=== PATIENT | female | born 1955 | race Caucasian/White ===

== ENCOUNTER 2021-01-30 14:56 | Emergency (ER) | payer MEDICARE, BC ==
--- NOTE | 2021-01-30 16:36 | ERPHSYRPT ---
- History of Present Illness Time Seen by Provider: 01/30/21 15:10 Source: patient Exam Limitations: no limitations Patient Subjective Stated Complaint: PT states "I have MS and I got the second covid shot on january 04 and ever since then I have had these odd symptoms. I have had buring near my perineaum and my coordination has been off. I called and spoke with my neurologist in [place] [facility] and they initially thought it was an MS flair due to the coviid shot but the symptoms have been getting worse and I called and spoke with a triage nurse today and he got all nervous that I might be having a stroke." Triage Nursing Assessment: PT presented alert and oriented X3, skin pwd. Pt ambulates with a cane and unsteady gait. PT able to speak in clear full sentencs pt in no apparent respiratory distress. Physician History: Patient is a 65-year-old female presents to our ED as referral from her primary care doctor for evaluation of "stroke". Patient states that she has been having difficulty walking for the past 3 days. However patient states that Dilaudid pump. She is also on Lyrica and Valium. Patient's Lyrica was recently increased on 23 January by her pain specialist. Patient does state that her neurologist felt that she had a MS flareup on 19 January due to Covid vaccination. Patient was then given 3 days of steroid infusion for the suspected flareup. Patient has no other complaints. No chest pain or shortness of breath no nausea vomiting or diaphoresis. No focal or lateralizing symptoms. Patient does states that she feels off and her balance is not normal. Patient voices no other complaints or concerns at this time. Timing/Duration: day(s) (3 days) Severity: moderate Modifying Factors: Improves With: nothing Associated Symptoms: No nausea, No vomiting, No diaphoresis, No chest pain, No fever, No headaches, No loss of appetite, No malaise, No syncope Allergies/Adverse Reactions: levofloxacin [From Levaquin] Allergy (Mild, Verified 01/20/21 13:02) tendonitis Penicillins Allergy (Unknown, Verified 01/20/21 12:59) Rash chromium Allergy (Verified 01/20/21 12:59) Rash formaldehyde Allergy (Verified 01/20/21 12:59) Rash epinephrine Adverse Reaction (Unknown, Verified 01/20/21 12:59) pt states it increases her heart rate and makes her feel stoned morphine Adverse Reaction (Unknown, Verified 01/20/21 12:59) hallucnations NSAIDS (Non-Steroidal Anti-Inflamma Adverse Reaction (Unknown, Verified 01/20/21 12:59) stomach ulcers nalbuphine HCl [From Nubain] Adverse Reaction (Verified 01/20/21 12:59) hallucunations steroids Adverse Reaction (Unknown, Uncoded 01/20/21 12:59) pt states they makes her flush feel hot and increases her blood pressure Home Medications: Baclofen 10 mg [Lioresal 10 mg] 2 tab PO TID 04/08/12 [History] Cyclosporine [Restasis] 1 drops OP BID 04/08/12 [History] Estradiol 1 tab PO DAILY 04/08/12 [History] PANTOPRAZOLE 40 mg Tablet [Protonix 40MG Tablet] 40 mg PO DAILY 01/24/16 [History] Levothyroxine Sodium 50 Mcg [Synthroid 50 Mcg] 50 mcg PO DAILY 06/13/16 [History] Atorvastatin Calcium [Lipitor 20MG Tablet] 20 mg PO DAILY 01/20/21 [History] Cholestyramine Light 4 gm [QUESTRAN Light 4 GM Packet] 4 gm PO HS 01/20/21 [History] Diltiazem HCl 120 mg [Cardizem CD 120 MG] 120 mg PO DAILY 01/20/21 [History] Famotidine [Pepcid] 40 mg PO HS 01/20/21 [History] Hydromorphone HCl 30 mg/30 ml* [Dilaudid 1 mg/1Ml ELECTRICIAN REFINERY] 0.94032 mg IV UD 01/20/21 [History] Lidocaine/Transparent Dressing [Lidocaine 4% Kit] 1 each TP UD 01/20/21 [History] Promethazine HCl 25 mg [Phenergan 25 mg] 25 mg PO Q6H PRN PRN 01/20/21 [History] Rivaroxaban 10 mg Tablet [Xarelto 10 mg Tablet] 10 mg PO DAILY 01/20/21 [History] Diazepam 5 mg [Valium 5 MG] 5 mg PO DAILY 01/30/21 [History] Pregabalin [Lyrica 100Mg] 200 mg PO BID 01/30/21 [History] Hx Tetanus, Diphtheria Vaccination/Date Given: Yes Hx Influenza Vaccination/Date Given: Yes Hx Pneumococcal Vaccination/Date Given: No Immunizations Up to Date: Yes Travel Risk - International Travel Have you traveled outside of the country in past 3 weeks: No - Coronavirus Screening Are you exhibiting any of the following symptoms?: No Close contact with a COVID-19 positive Pt in past 14-21 Days: No - Vaccine Status Have you recieved a Covid-19 vaccination: Yes Manager Program Management: Moderna - Vaccination Dates Date of 2cond Vaccination (if applicable): 01/04/2021 - Review of Systems Constitutional: No Symptoms, No Fever, No Chills Eyes: No Symptoms Ears, Nose, & Throat: No Symptoms Respiratory: No Symptoms, No Cough, No Dyspnea Cardiac: No Symptoms, No Chest Pain, No Edema, No Syncope Abdominal/Gastrointestinal: No Symptoms, No Abdominal Pain, No Nausea, No Vomiting, No Diarrhea Genitourinary Symptoms: No Symptoms, No Dysuria Musculoskeletal: No Symptoms, No Back Pain, No Neck Pain Skin: No Symptoms, No Rash Neurological: No Symptoms, No Dizziness, No Focal Weakness, No Sensory Changes Psychological: No Symptoms Endocrine: No Symptoms Hematologic/Lymphatic: No Symptoms Immunological/Allergic: No Symptoms All Other Systems: Reviewed and Negative - Past Medical History Pertinent Past Medical History: Yes Neurological History: Migraines, Other ENT History: Other Cardiac History: Arrhythmia, High Cholesterol Respiratory History: No Pertinent History Endocrine Medical History: Hyperthyroidism, Hypothyroidism Musculoskeletal History: Degenerative Disk Disease GI Medical History: GERD, Gallbladder Disease History: Other Psycho-Social History: No Pertinent History Female Reproductive Disorders: Cervical Cancer Other Medical History: MULTIPLE SCLEROSIS (RELAPSING/REMITTING), CERVICAL CANCER, LYMPHONA (IN REMISSION),. 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 tinnitis - Past Surgical History Past Surgical History: Yes Neuro Surgical History: Other Cardiac: Cardiac Catheterization Respiratory: No Pertinent History Gastrointestinal: Appendectomy Genitourinary: Kidney Surgery Musculoskeletal: Orthopedic Surgery, Other Female Surgical History: Hysterectomy, Other Other Surgical History: odilia oopherectomy, t-11 and t12 laminectiomy, stents in kidney - Social History Smoking Status: Former smoker How long have you smoked: 5 years Exposure to second hand smoke: No Drug Use: none Patient Lives Alone: No - Female History Hx Now: No - Nursing Vital Signs Nursing Vital Signs: Initial Vital Signs Temperature 98.3 F 01/30/21 14:59 Pulse Rate 80 01/30/21 14:59 Respiratory Rate 20 01/30/21 14:59 Blood Pressure 153/74 01/30/21 14:59 O2 Sat by Pulse Oximetry 100 01/30/21 14:59 Pain Scale Pain Intensity 0 - Physical Exam General Appearance: no apparent distress, alert Eye Exam: PERRL/EOMI, eyes nml inspection Ears, Nose, Throat Exam: normal ENT inspection, TMs normal, pharynx normal, moist mucous membranes Neck Exam: normal inspection, non-tender, supple, full range of motion Respiratory Exam: normal breath sounds, lungs clear, No respiratory distress Cardiovascular Exam: regular rate/rhythm, normal heart sounds, normal peripheral pulses Gastrointestinal/Abdomen Exam: soft, normal bowel sounds, No tenderness, No mass Back Exam: normal inspection, normal range of motion, No CVA tenderness, No vertebral tenderness Extremity Exam: normal inspection, normal range of motion, pelvis stable Neurologic Exam: alert, oriented x 3, cooperative, normal mood/affect, nml cerebellar function, nml station & gait, sensation nml, No motor deficits Skin Exam: normal color, warm, dry, No rash Lymphatic Exam: No adenopathy SpO2 Interpretation: normal SpO2: 100 O2 Delivery: Room Air - Course Nursing assessment & vital signs reviewed: Yes EKG Interpreted by Me: RATE (86), Sinus Rhythm, NORMAL AXIS, NORMAL INTERVALS - CT Exams Head CT Interpretation: Tele-radiologist Report (Multiple bilateral periventricular hypodensities presumed known multiple sclerosis. Outside comparison studies recommended if available. If not MRI brain with contrast exam may yield further information.) Ordered Tests: Active Orders 24 hr Category Date Time Status Radio Communications Mechanician STAT Care 01/30/21 16:37 Active EKG-ER Only STAT Care 01/30/21 16:37 Active IV Insertion STAT Care 01/30/21 16:37 Active Pulse Oximetry (ED) STAT Care 01/30/21 16:37 Active HEAD WITHOUT CONTRAST [CT] Stat Exams 01/30/21 16:38 Taken CBC W DIFF Stat Lab 01/30/21 16:50 Completed CMP Stat Lab 01/30/21 16:50 Completed MAGNESIUM Stat Lab 01/30/21 16:50 Completed TROPONIN Q3H Lab 01/30/21 16:50 Completed TROPONIN Q3H Lab 01/30/21 19:30 Completed TROPONIN Q3H Lab 01/30/21 22:45 Ordered TROPONIN Q3H Lab 01/31/21 01:45 Ordered TROPONIN Q3H Lab 01/31/21 04:45 Ordered TSH, 3RD Generation Urgent Lab 01/30/21 16:50 Completed UA W/RFX UR CULTURE Stat Lab 01/30/21 17:17 Completed Medication Summary Generic Name Dose Route Start Last Admin Trade Name Freq PRN Reason Stop Dose Admin Sodium Chloride 1,000 mls @ 50 mls/hr 01/30/21 16:45 01/30/21 18:50 Sodium Chloride 0.9% 1000 Ml IV 03/01/21 16:44 50 mls/hr .Q20H KRISTIE Administration Lab/Rad Data: Laboratory Result Diagrams 01/30/21 16:50 01/30/21 16:50 Laboratory Results 01/30/21 01/30/21 01/30/21 Range/Units 19:30 17:17 16:50 WBC (4.0-10.5) K/mm3 RBC (4.1-5.4) M/mm3 Hgb (12.0-16.0) gm/dl Hct (35-47) % MCV (78-100) fl MCH (26-32) pg MCHC (32-36) g/dl RDW (11.5-14.0) % Plt Count (150-450) K/mm3 MPV (7.5-11.0) fl Gran % (36.0-66.0) % Eos # (Auto) (0-0.5) Absolute Lymphs (auto) (1.0-4.6) Absolute Monos (auto) (0.0-1.3) Lymphocytes % (24.0-44.0) % Monocytes % (0.0-12.0) % Eosinophils % (0.00-5.0) % Basophils % (0.0-0.4) % Absolute Granulocytes (1.4-6.9) Basophils # (0-0.4) Sodium (137-145) mmol/L Potassium (3.5-5.1) mmol/L Chloride (98-107) mmol/L Carbon Dioxide (22-30) mmol/L Anion Gap (5-15) MEQ/L BUN (7-17) mg/dL Creatinine (0.52-1.04) mg/dL Estimated GFR ML/MIN Glucose (74-106) mg/dL Calcium (8.4-10.2) mg/dL Magnesium (1.6-2.3) mg/dL Total Bilirubin (0.2-1.3) mg/dL AST (14-36) U/L ALT (0-35) U/L Alkaline Phosphatase (38-126) U/L Troponin I < 0.012 < 0.012 (0.000-0.034) ng/mL Serum Total Protein (6.3-8.2) g/dL Albumin (3.5-5.0) g/dL TSH 3rd Generation 0.687 (0.47-4.68) mIU/L Urine Color YELLOW (YELLOW) Urine Appearance SLIGHTLY CLOUDY (CLEAR) Urine pH 5.0 (5-6) Ur Specific [place] 1.019 (1.005-1.025) Urine Protein NEGATIVE (Negative) Urine Ketones NEGATIVE (NEGATIVE) Urine Blood NEGATIVE (0-5) [place]/ul Urine Nitrite NEGATIVE (NEGATIVE) Urine Bilirubin NEGATIVE (NEGATIVE) Urine Urobilinogen NEGATIVE (0-1) mg/dL Ur Leukocyte Esterase NEGATIVE (NEGATIVE) Urine WBC (Auto) NONE (0-5) /HPF Urine RBC (Auto) NONE (0-2) /HPF U Epithel Cells (Auto) NONE (FEW) /HPF Urine Bacteria (Auto) NONE (NEGATIVE) /HPF Urine Mucus (Auto) SLIGHT (NEGATIVE) /HPF Urine Culture Reflexed NO (NO) Urine Glucose NEGATIVE (NEGATIVE) mg/dL 01/30/21 01/30/21 Range/Units 16:50 16:50 WBC 5.6 (4.0-10.5) K/mm3 RBC 3.97 L (4.1-5.4) M/mm3 Hgb 12.6 (12.0-16.0) gm/dl Hct 39.2 (35-47) % MCV 98.7 (78-100) fl MCH 31.7 (26-32) pg MCHC 32.1 (32-36) g/dl RDW 13.3 (11.5-14.0) % Plt Count 215 (150-450) K/mm3 MPV 8.8 (7.5-11.0) fl Gran % 65.0 (36.0-66.0) % Eos # (Auto) 0.17 (0-0.5) Absolute Lymphs (auto) 1.32 (1.0-4.6) Absolute Monos (auto) 0.46 (0.0-1.3) Lymphocytes % 23.6 L (24.0-44.0) % Monocytes % 8.2 (0.0-12.0) % Eosinophils % 3.0 (0.00-5.0) % Basophils % 0.2 (0.0-0.4) % Absolute Granulocytes 3.63 (1.4-6.9) Basophils # 0.01 (0-0.4) Sodium 141 (137-145) mmol/L Potassium 3.9 (3.5-5.1) mmol/L Chloride 107 (98-107) mmol/L Carbon Dioxide 28 (22-30) mmol/L Anion Gap 9.8 (5-15) MEQ/L BUN 12 (7-17) mg/dL Creatinine 0.95 (0.52-1.04) mg/dL Estimated GFR > 60.0 ML/MIN Glucose 95 (74-106) mg/dL Calcium 9.3 (8.4-10.2) mg/dL Magnesium 2.6 H (1.6-2.3) mg/dL Total Bilirubin 0.30 (0.2-1.3) mg/dL AST 35 (14-36) U/L ALT 32 (0-35) U/L Alkaline Phosphatase 70 (38-126) U/L Troponin I (0.000-0.034) ng/mL Serum Total Protein 5.8 L (6.3-8.2) g/dL Albumin 3.5 (3.5-5.0) g/dL TSH 3rd Generation (0.47-4.68) mIU/L Urine Color (YELLOW) Urine Appearance (CLEAR) Urine pH (5-6) Ur Specific [place] (1.005-1.025) Urine Protein (Negative) Urine Ketones (NEGATIVE) Urine Blood (0-5) [place]/ul Urine Nitrite (NEGATIVE) Urine Bilirubin (NEGATIVE) Urine Urobilinogen (0-1) mg/dL Ur Leukocyte Esterase (NEGATIVE) Urine WBC (Auto) (0-5) /HPF Urine RBC (Auto) (0-2) /HPF U Epithel Cells (Auto) (FEW) /HPF Urine Bacteria (Auto) (NEGATIVE) /HPF Urine Mucus (Auto) (NEGATIVE) /HPF Urine Culture Reflexed (NO) Urine Glucose (NEGATIVE) mg/dL - Progress Progress: improved Progress Note: Patient reassessed. Neuro exam is at her baseline. Vitals within normal li mits. No focal or lateralizing symptoms. CT just consistent with a history of multiple sclerosis. Troponin negative. It appears that her symptomology is likely due to overmedication. Symptoms started right after initiating her Lyrica medication. Dr. Godfrey covering Dr. Ruff. We will hold the Lyrica. Patient will follow up with Dr. Godfrey this week. Dr. Samson will follow up with patient's neurologist Dr. Barton and patient's pain doctor Dr. Mark to coordinate her medication regimen. Patient requesting discharge. At this point there is no indication for admission. Will discharge home at this time. Patient agrees to follow-up with Dr. Maxwell within 48 hours for reev aluation. 01/30/21 20:30 Counseled pt/family regarding: lab results, diagnosis, rad results - Departure Departure Disposition: Home Clinical Impression: Overuse of medication Condition: Stable Critical Care Time: No Referrals: KATINA VILLAVICENCIO DO [Primary Care Provider] - YESENIA GODFREY MD [ACTIVE STAFF] - Additional Instructions: Please follow-up with Dr. Godfrey within [address]. Godfrey is covering for Dr. Ruff. You are to discontinue your Lyrica until advised otherwise by your primary care doctor/Dr. Ruff or Dr. Godfrey. Discharge/Care Plan KOURTNEY HU was seen on 01/30/21 in the Emergency Room. The patient was counseled regarding Diagnosis,Lab results, Imaging studies, need for follow up and when to return to the Emergency Room. Prescriptions given: Discharge Note I have spoken with the patient and/or caregivers. I have explained the patient's condition, diagnosis and treatment plan based on the information available to me at this time. I have answered the patient's and/or caregiver's questions and addressed any concerns. The patient and/or caregivers have as good understanding of the patient's diagnosis, condition and treatment plan as can be expected at this point. The vital signs have been stable. The patient's condition is stable and appropriate for discharge from the emergency department. The patient will pursue further outpatient evaluation with the primary care physician or other designated or consulting physician as outlined in the discharge instructions. The patient and/or caregivers are agreeable to this plan of care and follow-up instructions have been explained in detail. The patient and/or caregivers have received these instruction. The patient/and or caregivers are aware that any significant change in condition or worsening of symptoms should prompt an immediate return to this or the closest emergency department or call 911.
[2021-01-30] MEDS ORDERED: Sodium Chloride 0.9% 1000 ML 1,000 ML IV SCH (16:45)
[2021-01-30 16:55] LABS: Absolute Neutrophil Ct (ANC) 3.63 (1.4-6.9); BASOPHIL % 0.2 % (0.0-0.4); Basophil (Absolute #) 0.01 (0-0.4); Eosinophil (Absolute #) 0.17 (0-0.5); Hematocrit 39.2 % (35-47); Hemoglobin 12.6 gm/dl (12.0-16.0); Lymphocyte (Absolute #) 1.32 (1.0-4.6); Lymphocytes % 23.6 % (24.0-44.0); Mean Cell Volume 98.7 fl (78-100); Mean Corpuscular Hemoglobin 31.7 pg (26-32); Mean Corpuscular Hgb Concent. 32.1 g/dl (32-36); Mean Platelet Volume 8.8 fl (7.5-11.0); Monocyte (Absolute #) 0.46 (0.0-1.3); Monocytes % 8.2 % (0.0-12.0); Platelet Count 215 K/mm3 (150-450); Red Blood Count 3.97 M/mm3 (4.1-5.4); Red Cell Distribution Width 13.3 % (11.5-14.0); White Blood Count 5.6 K/mm3 (4.0-10.5)
[2021-01-30 17:25] LABS: ALBUMIN 3.5 g/dL (3.5-5.0); ALKALINE PHOSPHATASE 70 U/L (38-126); ANION GAP 9.8 MEQ/L (5-15); BLOOD UREA NITROGEN 12 mg/dL (7-17); CHLORIDE 107 mmol/L (98-107); Calcium 9.3 mg/dL (8.4-10.2); Carbon Dioxide 28 mmol/L (22-30); Creatinine 1 0.95 mg/dL (0.52-1.04); EST GLOMERULAR FILTRATION RATE > 60.0 ML/MIN; Glucose 95 mg/dL (74-106); MAGNESIUM 2.6 mg/dL (1.6-2.3); Potassium 3.9 mmol/L (3.5-5.1); SGOT/AST 35 U/L (14-36); SGPT/ALT 32 U/L (0-35); SODIUM 141 mmol/L (137-145); Total Protein 5.8 g/dL (6.3-8.2)
[2021-01-30 17:56] LABS: TROPONIN < 0.012 ng/mL (0.000-0.034); TSH, 3RD Generation 0.687 mIU/L (0.47-4.68)
[2021-01-30 18:20] LABS: Appearance SLIGHTLY CLOUDY (CLEAR); Bilirubin NEGATIVE (NEGATIVE); Blood NEGATIVE Ery/ul (0-5); Glucose NEGATIVE (NEGATIVE); Ketones NEGATIVE (NEGATIVE); Leukocyte Esterase NEGATIVE (NEGATIVE); Mucus SLIGHT /HPF (NEGATIVE); Nitrite NEGATIVE (NEGATIVE); Protein,Urine Dip NEGATIVE (Negative); Specific Gravity 1.019 (1.005-1.025); Urobilinogen NEGATIVE mg/dL (0-1)
[2021-01-30] MEDS ORDERED: Sodium Chloride 0.9% 1000 ML 1,000 ML ONE (18:49)
[2021-01-30 21:05] VITALS: BP 134/60; PULSE 71; O2SAT 97
--- NOTE | 2021-01-31 08:08 | XRAY ---
Indication: Altered mental status. Loss of balance. History multiple sclerosis. Multiple contiguous axial images obtained through the head without contrast. Comparison: None Ventriculosulcal pattern appears symmetric. There are multiple small ill-defined hypodensities in the periventricular white matter presumed known multiple sclerosis. No acute intracranial hemorrhage, abnormal extra-axial fluid collection, or mass effect. Fourth ventricle is midline without hydrocephalus. Bony calvarium intact. Visualized paranasal sinuses and mastoid air cells are clear. Impression: Multiple bilateral periventricular hypodensities presumed known multiple sclerosis. Outside comparison studies recommended if available. If not, MRI brain with contrast exam may yield further information.
== END 2021-01-30 21:05 | disposition home or self-care (01) ==
LOC: ED 14:56
DX: T50.901A Poisoning by unspecified drugs, medicaments and biological substances, accidental (unintentional), initial encounter (principal); Z79.899 Other long term (current) drug therapy; E03.9 Hypothyroidism, unspecified; E05.90 Thyrotoxicosis, unspecified without thyrotoxic crisis or storm
CPT/HCPCS: 36000; 36415; 70450; 80053; 81001; 83735; 84443; 84484; 85025; 93005; 93041; 94760; 99284

== ENCOUNTER 2021-05-17 15:29 | Day surgery (SDC) | payer MEDICARE, OTHER ==
[2013-06-22 13:06] VITALS: BP 119/52
[2021-05-17] MEDS ORDERED: Xylocaine 1% Vial 30 ML PF IJ ONE (15:30)
[2021-05-17] MEDS ORDERED: Sodium Chloride 0.9(Preservative Free) 10 ML IJ ONE (15:30)
[2021-05-17] MEDS ORDERED: Depo-Medrol 40 MG/ML IM ONE (15:30)
[2021-05-17] MEDS ORDERED: Lactated Ringers 1,000 ML IV ONE (16:39)
[2021-05-17] MEDS ORDERED: DIPRIVAN 200 MG/20 ML IV ONE (17:00)
--- NOTE | 2021-05-18 09:13 | XRAY ---
Indication: Caudal MELLISA. Intraoperative fluoroscopy provided for 19 seconds. 2 digital spot image submitted for interpretation demonstrates midline posterior caudal needle tip projecting mid sacrum. Small amount of contrast injected for needle tip placement. Correlate with intraoperative findings/report.
--- NOTE | 2021-05-18 15:50 | XRAY ---
19 seconds of fluoroscopy was used in surgery for a caudal MELLISA.
== END 2021-05-17 17:30 | disposition home or self-care (01) ==
LOC: SDC-PAIN 15:29
PROVIDERS: ATTEND Psychiatry & Neurology Pain Medicine
DX: M54.16 Radiculopathy, lumbar region (principal); Z79.899 Other long term (current) drug therapy
CPT/HCPCS: 62323; 72100; 77003; J1030; J2001; J2704; Q9966

== ENCOUNTER 2021-06-14 14:50 | Day surgery (SDC) | payer MEDICARE, OTHER ==
[2013-06-22 13:06] VITALS: BP 119/52
[2021-06-14] MEDS ORDERED: Depo-Medrol 40 MG/ML IM ONE (14:51)
[2021-06-14] MEDS ORDERED: Xylocaine 1% Vial 30 ML PF IJ ONE (14:51)
[2021-06-14] MEDS ORDERED: Sodium Chloride 0.9(Preservative Free) 10 ML IJ ONE (14:51)
[2021-06-14] MEDS ORDERED: Lactated Ringers 1,000 ML IV ONE (15:49)
[2021-06-14] MEDS ORDERED: DIPRIVAN 200 MG/20 ML IV ONE (16:05)
--- NOTE | 2021-06-14 16:51 | XRAY ---
Indication: Caudal MELLISA. Intraoperative fluoroscopy provided for 14 seconds. 2 digital spot images submitted for interpretation demonstrates posterior caudal needle tip projecting mid-sacrum. Small amount of contrast injected for needle tip placement. Correlate with intraoperative findings/report.
--- NOTE | 2021-06-14 16:53 | XRAY ---
14 seconds fluoroscopy time in surgery for caudal MELLISA.
== END 2021-06-14 16:30 | disposition home or self-care (01) ==
LOC: SDC-PAIN 14:50
PROVIDERS: ATTEND Psychiatry & Neurology Pain Medicine
DX: M54.16 Radiculopathy, lumbar region (principal); Z79.899 Other long term (current) drug therapy
CPT/HCPCS: 62323; 72020; 77003; J1030; J2001; J2704; Q9966

== ENCOUNTER 2021-10-03 15:05 | Emergency (ER) | payer MEDICARE, BC ==
[2021-10-03] MEDS ORDERED: LOPRESSOR 5 MG/5 ML INJECTION IV ONE ×4 (15:32→16:22)
[2021-10-03 15:57] VITALS: O2SAT 97
[2021-10-03 16:09] LABS: Absolute Neutrophil Ct (ANC) 3.52 (1.4-6.9); Basophil (Absolute #) 0.01 (0-0.4); Eosinophil % 0.9 % (0.00-5.0); Eosinophil (Absolute #) 0.05 (0-0.5); Hematocrit 42.5 % (35-47); Hemoglobin 13.8 gm/dl (12.0-16.0); Lymphocyte (Absolute #) 1.42 (1.0-4.6); Lymphocytes % 26.1 % (24.0-44.0); Mean Cell Volume 97.5 fl (78-100); Mean Corpuscular Hemoglobin 31.7 pg (26-32); Mean Corpuscular Hgb Concent. 32.5 g/dl (32-36); Mean Platelet Volume 8.6 fl (7.5-11.0); Monocyte (Absolute #) 0.45 (0.0-1.3); Monocytes % 8.3 % (0.0-12.0); Neutrophil % 64.5 % (36.0-66.0); Platelet Count 234 K/mm3 (150-450); Red Blood Count 4.36 M/mm3 (4.1-5.4); Red Cell Distribution Width 12.2 % (11.5-14.0); White Blood Count 5.5 K/mm3 (4.0-10.5)
[2021-10-03 16:27] LABS: ALBUMIN 4.4 g/dL (3.5-5.0); ALKALINE PHOSPHATASE 70 U/L (38-126); ANION GAP 9.6 MEQ/L (5-15); BLOOD UREA NITROGEN 13 mg/dL (7-17); CHLORIDE 104 mmol/L (98-107); CK-Creatinine Phosphokinase 34 U/L (30-135); Calcium 9.4 mg/dL (8.4-10.2); Carbon Dioxide 29 mmol/L (22-30); Creatinine 1 0.83 mg/dL (0.52-1.04); EST GLOMERULAR FILTRATION RATE > 60.0 ML/MIN; Glucose 106 mg/dL (74-106); Potassium 3.9 mmol/L (3.5-5.1); SGOT/AST 27 U/L (14-36); SGPT/ALT 16 U/L (0-35); SODIUM 139 mmol/L (137-145); Total Protein 6.8 g/dL (6.3-8.2)
--- NOTE | 2021-10-03 16:32 | XRAY ---
Indication: Dyspnea. Comparison: None Portable chest demonstrates normal heart, lungs, and bony thorax with incidental left hilar calcified nodes.
[2021-10-03 16:55] VITALS: BP 178/79; PULSE 84
[2021-10-03] MEDS ORDERED: Lopressor 50 MG PO ONE (17:02)
[2021-10-03] MEDS ORDERED: Lopressor 50 MG ONE (17:04)
--- NOTE | 2021-10-03 17:10 | ERPHSYRPT ---
- History of Present Illness Time Seen by Provider: 10/03/21 15:15 Source: patient Exam Limitations: no limitations Patient Subjective Stated Complaint: tachycardia with pauses causing her to feel lightheaded Triage Nursing Assessment: Pt was brought to the ER by her , hypertensive, tachycardia, denies pain, pulses normal, denies N&V, denies chest pain, denies diaphoresis, feels the palpatations in her neck Timing/Duration: today Activities at Onset: none Quality: other (feels palpitations) Location: other (no pain) Severity of Pain-Max: none Severity of Pain-Current: none Modifying Factors: Improves With: nothing Nitro Today/Relief: no nitro taken today Aspirin Treatment Today: no aspirin today Associated Symptoms: denies symptoms Prior Chest Pain/Cardiac Workup: no prior chest pain, echocardiography (hx PAF and takes diltiazem and eliquis, heart rate up today, but sinus tach with PVC's) Allergies/Adverse Reactions: levofloxacin [From Levaquin] Allergy (Mild, Verified 10/03/21 15:20) tendonitis Penicillins Allergy (Unknown, Verified 10/03/21 15:20) Rash chromium Allergy (Verified 10/03/21 15:20) Rash formaldehyde Allergy (Verified 10/03/21 15:20) Rash epinephrine Adverse Reaction (Unknown, Verified 10/03/21 15:20) pt states it increases her heart rate and makes her feel stoned morphine Adverse Reaction (Unknown, Verified 10/03/21 15:20) hallucnations NSAIDS (Non-Steroidal Anti-Inflamma Adverse Reaction (Unknown, Verified 10/03/21 15:20) stomach ulcers nalbuphine HCl [From Nubain] Adverse Reaction (Verified 10/03/21 15:20) hallucunations steroids Adverse Reaction (Unknown, Uncoded 10/03/21 15:20) pt states they makes her flush feel hot and increases her blood pressure Home Medications: Baclofen 10 mg [Lioresal 10 mg] 2 tab PO QID 04/08/12 [History] estradioL [Estradiol] 1 tab PO DAILY 04/08/12 [History] PANTOPRAZOLE 40 mg Tablet [Protonix 40MG Tablet] 40 mg PO DAILY 01/24/16 [History] Levothyroxine Sodium 50 Mcg [Synthroid 50 Mcg] 50 mcg PO DAILY 06/13/16 [History] Atorvastatin Calcium [Lipitor 20MG Tablet] 20 mg PO DAILY 01/20/21 [History] Diltiazem HCl 120 mg [Cardizem CD 120 MG] 120 mg PO DAILY 01/20/21 [History] Famotidine [Pepcid] 40 mg PO HS 01/20/21 [History] Promethazine HCl 25 mg [Phenergan 25 mg] 25 mg PO Q6H PRN PRN 01/20/21 [History] Rivaroxaban 10 mg Tablet [Xarelto 10 mg Tablet] 10 mg PO DAILY 01/20/21 [History] Diazepam 5 mg [Valium 5 MG] 2.5 mg PO DAILY PRN 01/30/21 [History] Colestipol HCl [Colestid] 1 gm PO DAILY 10/03/21 [History] Hx Tetanus, Diphtheria Vaccination/Date Given: Yes Hx Influenza Vaccination/Date Given: Yes Hx Pneumococcal Vaccination/Date Given: No Travel Risk - International Travel Have you traveled outside of the country in past 3 weeks: No - Coronavirus Screening Are you exhibiting any of the following symptoms?: No Close contact with a COVID-19 positive Pt in past 14-21 Days: No - Vaccine Status Have you recieved a Covid-19 vaccination: Yes 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 - Vaccination Dates Date of 2cond Vaccination (if applicable): 01/04/2021 - Review of Systems Constitutional: No Symptoms Eyes: No Symptoms Ears, Nose, & Throat: No Symptoms Respiratory: No Symptoms Cardiac: No Symptoms Abdominal/Gastrointestinal: No Symptoms Genitourinary Symptoms: No Symptoms Musculoskeletal: No Symptoms Skin: No Symptoms Neurological: No Symptoms Psychological: No Symptoms Endocrine: No Symptoms Hematologic/Lymphatic: No Symptoms Immunological/Allergic: No Symptoms All Other Systems: Reviewed and Negative - Past Medical History Pertinent Past Medical History: Yes Neurological History: Migraines, Other ENT History: Other Cardiac History: Hypertension Respiratory History: Asthma Endocrine Medical History: Hypothyroidism Musculoskeletal History: Osteoarthritis GI Medical History: GERD, Gallbladder Disease History: Other Psycho-Social History: No Pertinent History Female Reproductive Disorders: Cervical Cancer Other Medical History: INTERNAL PAIN PUMP, LYMPHOMA IN REMISSION, ATRIAL FIB, ARNOLD CHIARI MALFORMATION, MS - Past Surgical History Past Surgical History: Yes Neuro Surgical History: Other Cardiac: Cardiac Catheterization Respiratory: No Pertinent History Gastrointestinal: Appendectomy Genitourinary: Kidney Surgery Musculoskeletal: Orthopedic Surgery, Other Female Surgical History: Hysterectomy, Other Other Surgical History: odilia oopherectomy, t-11 and t12 laminectiomy, stents in kidney - Social History Smoking Status: Former smoker How long have you smoked: 5 years Exposure to second hand smoke: No Drug Use: none Patient Lives Alone: No - Female History Hx Now: No - Nursing Vital Signs Nursing Vital Signs: Initial Vital Signs Temperature 98.6 F 10/03/21 15:10 Pulse Rate 105 H 10/03/21 15:10 Blood Pressure 199/83 10/03/21 15:10 O2 Sat by Pulse Oximetry 98 10/03/21 15:10 Pain Scale Pain Intensity 0 - Physical Exam General Appearance: no apparent distress, alert, anxiety Eye Exam: PERRL/EOMI Ears, Nose, Throat Exam: normal ENT inspection Neck Exam: normal inspection Respiratory Exam: normal breath sounds, chest tenderness Cardiovascular Exam: regular rate/rhythm, normal heart sounds, tachycardia Gastrointestinal/Abdomen Exam: soft Pelvic Exam: not done Rectal Exam: not done Back Exam: normal inspection Extremity Exam: normal inspection Neurologic Exam: alert, oriented x 3, cooperative Skin Exam: normal color SpO2 Interpretation: normal SpO2: 97 O2 Delivery: Room Air - Course Nursing assessment & vital signs reviewed: Yes EKG Interpreted by Me: RATE (106), Sinus Tach, NORMAL AXIS, NORMAL INTERVALS (PVC's noted on monitor, this 12 lead also had an aberrant couplet of PVC's conducted.), NORMAL QRS, NORMAL ST-T - Radiology Exams Chest X-ray Interpretation: Reviewed by me, Negative Ordered Tests: Active Orders 24 hr Category Date Time Status EKG-ER Only STAT Care 10/03/21 15:32 Active CHEST 1 VIEW (PORTABLE) Stat Exams 10/03/21 15:33 Completed CBC W DIFF Stat Lab 10/03/21 16:08 Completed CK-Creatinine Phosphokinase Stat Lab 10/03/21 16:08 Completed CMP Stat Lab 10/03/21 16:08 Completed D-DIMER QUANTITATIVE Stat Lab 10/03/21 16:08 Completed MAGNESIUM Stat Lab 10/03/21 16:08 Completed TROPONIN Q3H Lab 10/03/21 16:08 Completed TROPONIN Q3H Lab 10/03/21 18:45 Ordered TROPONIN Q3H Lab 10/03/21 21:45 Ordered TROPONIN Q3H Lab 10/04/21 00:45 Ordered TROPONIN Q3H Lab 10/04/21 03:45 Ordered Medication Summary Discontinued Medications Generic Name Dose Route Start Last Admin Trade Name Freq PRN Reason Stop Dose Admin Metoprolol Tartrate 5 mg 10/03/21 15:32 10/03/21 15:41 Metoprolol Tartrate 5 Mg/5 Ml Injection IV 10/03/21 15:33 5 mg STAT ONE Administration Metoprolol Tartrate Confirm 10/03/21 15:33 Metoprolol Tartrate 5 Mg/5 Ml Injection Administered 10/03/21 15:34 Dose 5 mg IV .STK-MED ONE Metoprolol Tartrate 5 mg 10/03/21 16:17 10/03/21 16:23 Metoprolol Tartrate 5 Mg/5 Ml Injection IV 10/03/21 16:18 5 mg STAT ONE Administration Metoprolol Tartrate Confirm 10/03/21 16:22 Metoprolol Tartrate 5 Mg/5 Ml Injection Administered 10/03/21 16:23 Dose 5 mg IV .STK-MED ONE Metoprolol Tartrate 50 mg 10/03/21 17:02 10/03/21 17:04 Metoprolol Tartrate 50 Mg Tablet PO 10/03/21 17:03 50 mg HS ONE Administration Lab/Rad Data: Laboratory Result Diagrams 10/03/21 16:08 10/03/21 16:08 Laboratory Results 10/03/21 10/03/21 10/03/21 Range/Units 16:08 16:08 16:08 WBC (4.0-10.5) K/mm3 RBC (4.1-5.4) M/mm3 Hgb (12.0-16.0) gm/dl Hct (35-47) % MCV (78-100) fl MCH (26-32) pg MCHC (32-36) g/dl RDW (11.5-14.0) % Plt Count (150-450) K/mm3 MPV (7.5-11.0) fl Gran % (36.0-66.0) % Eos # (Auto) (0-0.5) Absolute Lymphs (auto) (1.0-4.6) Absolute Monos (auto) (0.0-1.3) Lymphocytes % (24.0-44.0) % Monocytes % (0.0-12.0) % Eosinophils % (0.00-5.0) % Basophils % (0.0-0.4) % Absolute Granulocytes (1.4-6.9) Basophils # (0-0.4) D-Dimer < 215 L (215-500) ng/mL Sodium 139 (137-145) mmol/L Potassium 3.9 (3.5-5.1) mmol/L Chloride 104 (98-107) mmol/L Carbon Dioxide 29 (22-30) mmol/L Anion Gap 9.6 (5-15) MEQ/L BUN 13 (7-17) mg/dL Creatinine 0.83 (0.52-1.04) mg/dL Estimated GFR > 60.0 ML/MIN Glucose 106 (74-106) mg/dL Calcium 9.4 (8.4-10.2) mg/dL Magnesium 2.0 (1.6-2.3) mg/dL Total Bilirubin 0.60 (0.2-1.3) mg/dL AST 27 (14-36) U/L ALT 16 (0-35) U/L Alkaline Phosphatase 70 (38-126) U/L Creatine Kinase 34 (30-135) U/L Troponin I < 0.012 (0.000-0.034) ng/mL Serum Total Protein 6.8 (6.3-8.2) g/dL Albumin 4.4 (3.5-5.0) g/dL 10/03/21 Range/Units 16:08 WBC 5.5 (4.0-10.5) K/mm3 RBC 4.36 (4.1-5.4) M/mm3 Hgb 13.8 (12.0-16.0) gm/dl Hct 42.5 (35-47) % MCV 97.5 (78-100) fl MCH 31.7 (26-32) pg MCHC 32.5 (32-36) g/dl RDW 12.2 (11.5-14.0) % Plt Count 234 (150-450) K/mm3 MPV 8.6 (7.5-11.0) fl Gran % 64.5 (36.0-66.0) % Eos # (Auto) 0.05 (0-0.5) Absolute Lymphs (auto) 1.42 (1.0-4.6) Absolute Monos (auto) 0.45 (0.0-1.3) Lymphocytes % 26.1 (24.0-44.0) % Monocytes % 8.3 (0.0-12.0) % Eosinophils % 0.9 (0.00-5.0) % Basophils % 0.2 (0.0-0.4) % Absolute Granulocytes 3.52 (1.4-6.9) Basophils # 0.01 (0-0.4) D-Dimer (215-500) ng/mL Sodium (137-145) mmol/L Potassium (3.5-5.1) mmol/L Chloride (98-107) mmol/L Carbon Dioxide (22-30) mmol/L Anion Gap (5-15) MEQ/L BUN (7-17) mg/dL Creatinine (0.52-1.04) mg/dL Estimated GFR ML/MIN Glucose (74-106) mg/dL Calcium (8.4-10.2) mg/dL Magnesium (1.6-2.3) mg/dL Total Bilirubin (0.2-1.3) mg/dL AST (14-36) U/L ALT (0-35) U/L Alkaline Phosphatase (38-126) U/L Creatine Kinase (30-135) U/L Troponin I (0.000-0.034) ng/mL Serum Total Protein (6.3-8.2) g/dL Albumin (3.5-5.0) g/dL - Progress Progress: improved Air Movement: good Progress Note: 10/03/21 17:14 She was given 2 doses of IV lopressor which reduced heart rate to around 80. BP better (had been high, down to 160 sys), much less ectopy. Discussed with her cardiolgist, he says to add lopressor 25 mg po bid to her diltiazem and he will F/U. 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 Labs unremarkable, these sy mptoms started last night, troponin neg, she says she had her thyroid labs done recently and they were fine. Continue other med and close F/U with cardiolgist and PCP. Blood Culture(s) Obtained: No Antibiotics given: No Counseled pt/family regarding: lab results, diagnosis, need for follow-up, rad results - Departure Departure Disposition: Home Clinical Impression: Palpitations, Hypertension Condition: Stable Critical Care Time: No Referrals: KATINA VILLAVICENCIO DO [Primary Care Provider] - Follow up/PCP as directed Instructions: Tachycardia (DC) Additional Instructions: Add the metoprolol to your medications, dose may need adjusted to regulate your heart rate and blood pressure. 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 Prescriptions: Metoprolol Tartrate 25 mg [Lopressor 25MG Tab] 25 mg PO BID #60 tab
== END 2021-10-03 17:09 | disposition home or self-care (01) ==
LOC: ED 15:05
DX: R00.2 Palpitations (principal); I10 Essential (primary) hypertension; Z79.01 Long term (current) use of anticoagulants; Z79.899 Other long term (current) drug therapy
CPT/HCPCS: 36000; 36415; 71045; 80053; 82550; 83735; 84484; 85025; 85379; 93005; 96374; 96376; 99284; A9270-GY

== ENCOUNTER 2022-12-26 13:09 | Day surgery (SDC) | payer MEDICARE ==
[2013-06-22 13:06] VITALS: BP 119/52
[2022-12-26] MEDS ORDERED: BUPIVACAINE 0.5% VIAL IJ ONE (13:10)
[2022-12-26] MEDS ORDERED: Depo-Medrol 40 MG/ML IM ONE (13:10)
[2022-12-26] MEDS ORDERED: DIPRIVAN 200 MG/20 ML IV ONE (14:41)
[2022-12-26] MEDS ORDERED: Lactated Ringers 1,000 ML IV ONE (14:51)
--- NOTE | 2022-12-26 16:38 | XRAY ---
Indication: Left hip and greater trochanter bursa injection. Intraoperative fluoroscopy provided for 21 seconds. 3 digital spot images submitted for interpretation demonstrates needle tip projecting lateral to left femur neck. Second needle tip lateral to greater trochanter. Small amount of contrast injected for both needle tip placement. Correlate with intraoperative findings/report.
--- NOTE | 2022-12-26 16:44 | XRAY ---
21 seconds of fluoroscopy was used in surgery for a left intra-articular hip and left greater trochanteric bursa injection.
== END 2022-12-26 15:15 | disposition home or self-care (01) ==
LOC: SDC-PAIN 13:09
PROVIDERS: ATTEND Psychiatry & Neurology Pain Medicine
DX: M16.12 Unilateral primary osteoarthritis, left hip (principal); Z79.899 Other long term (current) drug therapy
CPT/HCPCS: 20610; 73502; 77002; J1030; J2704; Q9966

== ENCOUNTER 2023-02-11 18:46 | Observation (INO) | payer MEDICARE ==
--- NOTE | 2023-02-11 18:48 | ERPHSYRPT ---
- History of Present Illness Time Seen by Provider: 02/11/23 18:48 Historian: patient, family Exam Limitations: no limitations Physician History: This is a 67-year-old white female patient of Dr. 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 Drake who presents with first noticing palpitations approximately 45 minutes prior to arrival. She did take an extra Cardizem which she takes for atrial fibrillation prior to arrival to the emergency department. She has not taken her second dose of Xarelto at this time. Approximately 10 minutes prior to arrival, the patient noticed some chest pressure it did not relieve with time therefore she presented to the emergency department. She she describes a pressure sensation without radiation just to the left of the sternum. It is localized. She states that she does not have shortness of breath per se and her room air oxygen saturation levels 100%. However when she is speaking she appears mildly short of breath. Patient does have a history of hypothyroidism, hyperlipidemia, hypertension, rheumatoid arthritis and multiple sclerosis. She has not had a fever she has not had a cough. She has no abdominal pain. Timing/Duration: today Quality: pressure (Left of sternum. Localized without radiation) Location: substernal (Left of sternum) Chest Pain Radiation: no radiation Severity of Pain-Max: mild Severity of Pain-Current: mild Modifying Factors: Improves With: nothing Associated Symptoms: palpitations Prior Chest Pain/Cardiac Workup: cardiac cath Nitro Today/Relief: no nitro taken today Aspirin Treatment Today: 81 mg x 4, provided by ED (Patient states she has taken aspirin in the past without any problems) Allergies/Adverse Reactions: levofloxacin [From Levaquin] Allergy (Mild, Verified 02/11/23 18:48) tendonitis Penicillins Allergy (Unknown, Verified 02/11/23 18:48) Rash chromium Allergy (Verified 02/11/23 18:48) Rash formaldehyde Allergy (Verified 02/11/23 18:48) Rash epinephrine Adverse Reaction (Unknown, Verified 02/11/23 18:48) pt states it increases her heart rate and makes her feel stoned morphine Adverse Reaction (Unknown, Verified 02/11/23 18:48) hallucnations NSAIDS (Non-Steroidal Anti-Inflamma Adverse Reaction (Unknown, Verified 02/11/23 18:48) stomach ulcers nalbuphine HCl [From Nubain] Adverse Reaction (Verified 02/11/23 18:48) hallucunations steroids Adverse Reaction (Unknown, Uncoded 02/11/23 18:48) pt states they makes her flush feel hot and increases her blood pressure Home Medications: Baclofen 10 mg [Lioresal 10 mg] 2 tab PO QID 04/08/12 [History] estradioL [Estradiol] 1 tab PO DAILY 04/08/12 [History] PANTOPRAZOLE 40 mg Tablet [Protonix 40MG Tablet] 40 mg PO DAILY 01/24/16 [History] Levothyroxine Sodium 50 Mcg [Synthroid 50 Mcg] 50 mcg PO DAILY 06/13/16 [History] Atorvastatin Calcium [Lipitor 20MG Tablet] 20 mg PO DAILY 01/20/21 [History] Diltiazem HCl Cd [Cardizem CD 120 MG] 120 mg PO DAILY 01/20/21 [History] Famotidine [Pepcid] 40 mg PO HS 01/20/21 [History] Promethazine HCl 25 mg [Phenergan 25 mg] 25 mg PO Q6H PRN PRN 01/20/21 [History] Rivaroxaban 10 mg Tablet [Xarelto 10 mg Tablet] 10 mg PO DAILY 01/20/21 [History] Diazepam 5 mg [Valium 5 MG] 2.5 mg PO DAILY PRN 01/30/21 [History] Colestipol HCl [Colestid] 1 gm PO DAILY 10/03/21 [History] Hx Tetanus, Diphtheria Vaccination/Date Given: Yes Hx Influenza Vaccination/Date Given: Yes Hx Pneumococcal Vaccination/Date Given: No Travel Risk - International Travel Have you traveled outside of the country in past 3 weeks: No - Coronavirus Screening Are you exhibiting any of the following symptoms?: No Close contact with a COVID-19 positive Pt in past 14-21 Days: No - Vaccine Status Have you recieved a Covid-19 vaccination: Yes Software Test Developer: Moderna - Vaccination Dates Date of 2cond Vaccination (if applicable): 01/04/2021 - Review of Systems Constitutional: No Symptoms Eyes: No Symptoms Ears, Nose, & Throat: No Symptoms Respiratory: No Symptoms Cardiac: Chest Pain (Scribed as a nonradiating left of sternum localized chest pressure) Abdominal/Gastrointestinal: No Symptoms Genitourinary Symptoms: No Symptoms Musculoskeletal: No Symptoms Skin: No Symptoms Neurological: No Symptoms Psychological: No Symptoms Endocrine: No Symptoms Hematologic/Lymphatic: No Symptoms Immunological/Allergic: No Symptoms All Other Systems: Reviewed and Negative - Past Medical History Pertinent Past Medical History: Yes Neurological History: Other ENT History: Other Cardiac History: Arrhythmia, High Cholesterol, Hypertension Respiratory History: No Pertinent History Endocrine Medical History: Hypothyroidism Musculoskeletal History: Osteoarthritis, Rheumatoid Arthritis GI Medical History: GERD, Gallbladder Disease History: Other Psycho-Social History: No Pertinent History Female Reproductive Disorders: Cervical Cancer Other Medical History: MULTIPLE SCLEROSIS, LYMPHOMA, PAROXSYMAL A-FIB - Past Surgical History Past Surgical History: Yes Neuro Surgical History: Other Cardiac: Cardiac Catheterization Respiratory: No Pertinent History Gastrointestinal: Appendectomy Genitourinary: Kidney Surgery Musculoskeletal: Orthopedic Surgery, Other Female Surgical History: Hysterectomy, Other Other Surgical History: odilia oopherectomy, t-11 and t12 laminectiomy, stents in kidney - Social History Smoking Status: Former smoker How long have you smoked: 5 years Exposure to second hand smoke: No Drug Use: none Patient Lives Alone: No - Nursing Vital Signs Nursing Vital Signs: Initial Vital Signs Pulse Rate 94 H 02/11/23 18:47 Respiratory Rate 17 02/11/23 18:47 Blood Pressure 177/85 02/11/23 18:47 O2 Sat by Pulse Oximetry 99 02/11/23 18:47 Pain Scale Pain Intensity 5 - Physical Exam General Appearance: no apparent distress, alert, anxiety Eye Exam: PERRL/EOMI, eyes nml inspection Ears, Nose, Throat Exam: normal ENT inspection, moist mucous membranes Neck Exam: normal inspection, non-tender, supple, full range of motion Respiratory Exam: normal breath sounds, lungs clear, airway intact, No chest tenderness, No respiratory distress Cardiovascular Exam: tachycardia Gastrointestinal/Abdomen Exam: soft, normal bowel sounds, No tenderness Pelvic Exam: not done Rectal Exam: not done Back Exam: normal inspection, normal range of motion, No CVA tenderness, No vertebral tenderness Extremity Exam: normal inspection, normal range of motion, pelvis stable Neurologic Exam: alert, oriented x 3, cooperative, lavatory attendant II-XII nml as tested, normal mood/affect, nml cerebellar function, nml station & gait, sensation nml - Course Nursing assessment & vital signs reviewed: Yes EKG Interpreted by Or: RATE ([id number]), Sinus Tach, NORMAL AXIS, NORMAL INTERVALS, NORMAL QRS, Other (PVCs. No acute ischemic changes present.) Ordered Tests: Active Orders 24 hr Category Date Time Status Fitness Manager STAT Care 02/11/23 18:51 Active EKG-ER Only STAT Care 02/11/23 18:50 Active IV Insertion STAT Care 02/11/23 18:50 Active CHEST 1 VIEW (PORTABLE) Stat Exams 02/11/23 18:50 Taken CBC W DIFF Stat Lab 02/11/23 19:00 Completed CMP Stat Lab 02/11/23 19:00 Completed D-DIMER QUANTITATIVE Stat Lab 02/11/23 19:00 Completed PROTIME WITH INR Stat Lab 02/11/23 19:00 Completed T4 (Thyroxine) Stat Lab 02/11/23 19:00 Completed TROPONIN Q4H Lab 02/11/23 19:00 Completed TROPONIN Q4H Lab 02/11/23 22:00 Completed TROPONIN Q4H Lab 02/12/23 03:00 Ordered TSH [TSH, 3RD Generation] Stat Lab 02/11/23 19:00 Completed Medication Summary Discontinued Medications Generic Name Dose Route Start Last Admin Trade Name Rafal PRN Reason Stop Dose Admin Acetaminophen 650 mg 02/11/23 22:07 02/11/23 22:12 Acetaminophen 325 Mg Tablet PO 02/11/23 22:08 650 mg STAT ONE Administration Acetaminophen Confirm 02/11/23 22:11 Acetaminophen 325 Mg Tablet Administered 02/11/23 22:12 Dose 650 mg .ROUTE .STK-MED ONE Aspirin 324 mg 02/11/23 18:50 02/11/23 19:19 Aspirin 81 Mg Tab.Chew PO 02/11/23 18:51 324 mg STAT ONE Administration Lab/Rad Data: Laboratory Result Diagrams 02/11/23 19:00 02/11/23 19:00 Laboratory Results 02/11/23 02/11/23 02/11/23 Range/Units 22:00 19:00 19:00 WBC (4.0-10.5) x10^3/uL RBC (4.1-5.4) x10^6/uL Hgb (12.0-16.0) g/dL Hct (35-47) % MCV (78-100) fL MCH (26-32) pg MCHC (32-36) g/dL RDW (11.5-14.0) % Plt Count (150-450) x10^3/uL MPV (7.5-11.0) fL Gran % (36.0-66.0) % Immature Gran % (Auto) (0.00-0.4) % Nucleat RBC Rel Count (0.00-0.1) % Eos # (Auto) (0-0.5) x10^3/uL Immature Gran # (Auto) (0.00-0.03) x10^3u/L Absolute Lymphs (auto) (1.0-4.6) x10^3/uL Absolute Monos (auto) (0.0-1.3) x10^3/uL Absolute Nucleated RBC (0.00-0.01) x10^3u/L Lymphocytes % (24.0-44.0) % Monocytes % (0.0-12.0) % Eosinophils % (0.00-5.0) % Basophils % (0.0-0.4) % Absolute Granulocytes (1.4-6.9) x10^3/uL Basophils # (0-0.4) x10^3/uL PT (9.4-12.5) SECONDS INR (0.8-3.0) D-Dimer (0.0-0.50) mg/L Sodium (137-145) mmol/L Potassium (3.5-5.1) mmol/L Chloride (98-107) mmol/L Carbon Dioxide (22-30) mmol/L Anion Gap (5-15) MEQ/L BUN (7-17) mg/dL Creatinine (0.52-1.04) mg/dL Estimated GFR ML/MIN Glucose (74-106) mg/dL Calcium (8.4-10.2) mg/dL Total Bilirubin (0.2-1.3) mg/dL AST (14-36) U/L ALT (0-35) U/L Alkaline Phosphatase (38-126) U/L Troponin I < 0.012 (0.000-0.034) ng/mL Serum Total Protein (6.3-8.2) g/dL Albumin (3.5-5.0) g/dL Thyroxine (T4) 10.7 (5.53-10.96) ug/dL TSH 3rd Generation 0.623 (0.47-4.68) mIU/L 02/11/23 02/11/23 02/11/23 Range/Units 19:00 19:00 19:00 WBC (4.0-10.5) x10^3/uL RBC (4.1-5.4) x10^6/uL Hgb (12.0-16.0) g/dL Hct (35-47) % MCV (78-100) fL MCH (26-32) pg MCHC (32-36) g/dL RDW (11.5-14.0) % Plt Count (150-450) x10^3/uL MPV (7.5-11.0) fL Gran % (36.0-66.0) % Immature Gran % (Auto) (0.00-0.4) % Nucleat RBC Rel Count (0.00-0.1) % Eos # (Auto) (0-0.5) x10^3/uL Immature Gran # (Auto) (0.00-0.03) x10^3u/L Absolute Lymphs (auto) (1.0-4.6) x10^3/uL Absolute Monos (auto) (0.0-1.3) x10^3/uL Absolute Nucleated RBC (0.00-0.01) x10^3u/L Lymphocytes % (24.0-44.0) % Monocytes % (0.0-12.0) % Eosinophils % (0.00-5.0) % Basophils % (0.0-0.4) % Absolute Granulocytes (1.4-6.9) x10^3/uL Basophils # (0-0.4) x10^3/uL PT 10.4 (9.4-12.5) SECONDS INR 0.95 (0.8-3.0) D-Dimer 0.25 (0.0-0.50) mg/L Sodium 137 (137-145) mmol/L Potassium 3.8 (3.5-5.1) mmol/L Chloride 100 (98-107) mmol/L Carbon Dioxide 26 (22-30) mmol/L Anion Gap 14.8 (5-15) MEQ/L BUN 10 (7-17) mg/dL Creatinine 0.73 (0.52-1.04) mg/dL Estimated GFR > 60.0 ML/MIN Glucose 117 H (74-106) mg/dL Calcium 9.5 (8.4-10.2) mg/dL Total Bilirubin 0.70 (0.2-1.3) mg/dL AST 28 (14-36) U/L ALT 20 (0-35) U/L Alkaline Phosphatase 92 (38-126) U/L Troponin I < 0.012 (0.000-0.034) ng/mL Serum Total Protein 6.7 (6.3-8.2) g/dL Albumin 4.2 (3.5-5.0) g/dL Thyroxine (T4) (5.53-10.96) ug/dL TSH 3rd Generation (0.47-4.68) mIU/L 02/11/23 Range/Units 19:00 WBC 7.3 (4.0-10.5) x10^3/uL RBC 4.21 (4.1-5.4) x10^6/uL Hgb 13.7 (12.0-16.0) g/dL Hct 40.9 (35-47) % MCV 97.1 (78-100) fL MCH 32.5 H (26-32) pg MCHC 33.5 (32-36) g/dL RDW 12.5 (11.5-14.0) % Plt Count 228 (150-450) x10^3/uL MPV 8.5 (7.5-11.0) fL Gran % 67.4 H (36.0-66.0) % Immature Gran % (Auto) 0.3 (0.00-0.4) % Nucleat RBC Rel Count 0.0 (0.00-0.1) % Eos # (Auto) 0.05 (0-0.5) x10^3/uL Immature Gran # (Auto) 0.02 (0.00-0.03) x10^3u/L Absolute Lymphs (auto) 1.75 (1.0-4.6) x10^3/uL Absolute Monos (auto) 0.54 (0.0-1.3) x10^3/uL Absolute Nucleated RBC 0.00 (0.00-0.01) x10^3u/L Lymphocytes % 23.8 L (24.0-44.0) % Monocytes % 7.4 (0.0-12.0) % Eosinophils % 0.7 (0.00-5.0) % Basophils % 0.4 (0.0-0.4) % Absolute Granulocytes 4.95 (1.4-6.9) x10^3/uL Basophils # 0.03 (0-0.4) x10^3/uL PT (9.4-12.5) SECONDS INR (0.8-3.0) D-Dimer (0.0-0.50) mg/L Sodium (137-145) mmol/L Potassium (3.5-5.1) mmol/L Chloride (98-107) mmol/L Carbon Dioxide (22-30) mmol/L Anion Gap (5-15) MEQ/L BUN (7-17) mg/dL Creatinine (0.52-1.04) mg/dL Estimated GFR ML/MIN Glucose (74-106) mg/dL Calcium (8.4-10.2) mg/dL Total Bilirubin (0.2-1.3) mg/dL AST (14-36) U/L ALT (0-35) U/L Alkaline Phosphatase (38-126) U/L Troponin I (0.000-0.034) ng/mL Serum Total Protein (6.3-8.2) g/dL Albumin (3.5-5.0) g/dL Thyroxine (T4) (5.53-10.96) ug/dL TSH 3rd Generation (0.47-4.68) mIU/L - Progress Progress: improved Air Movement: good Progress Note: 02/11/23 22:50 Chest x-ray was interpreted by me. There are no acute cardiopulmonary proce sses. This patient states that her symptoms have resolved. She does not feel palpitations and she does not have chest pain. The patient's medical issue is of moderate complexity. The level of complexity in the work-up performed is based on the review of the patient's past medical history, review of the patient's medication list, review of the patient's drug allergy list, history of present illness and the findings on physical examination. This patient's work- up includes a twelve-lead EKG, chest x-ray, troponin level, D-dimer level, CBC, CMP. I reviewed the above-stated findings. We kept the patient here for a 3- hour troponin which was normal and a twelve-lead EKG which is also now rate controlled atrial fibrillation. There is no evidence of any acute ischemia on the repeat twelve-lead EKG. 02/11/23 23:10 Repeat twelve-lead EKG shows sinus rhythm with a heart rate of 74. No evidence of any acute ischemic changes on the repeat EKG. There are normal intervals, there is normal deviation. There is normal QRS. Blood Culture(s) Obtained: No Antibiotics given: No Counseled pt/family regarding: lab results, diagnosis, need for follow-up, rad results Medical Desision Making - Diagnostic Testing Diagnostic test were ordered, analyzed, and reviewed by me: Yes Radiological Interpretation: Interpreted by me - Risk of complications Low Risk: Low risk of morbidity from additional dx testing or treatment - Departure Departure Disposition: Home Clinical Impression: Paroxysmal sinus tachycardia, Asymptomatic PVCs, Palpitations Condition: Stable Critical Care Time: No Referrals: KATINA VILLAVICENCIO DO [Primary Care Provider] - Follow up/PCP as directed Additional Instructions: Take your medications as prescribed. Follow-up with your hooking machine operator tomorrow morning 02/12/2023, by phone to make arrangements for further evaluation and management.
[2023-02-11] MEDS ORDERED: BABY ASPIRIN 81 MG CHEW PO ONE (18:50)
[2023-02-11 19:12] LABS: Absolute Neutrophil Ct (ANC) 4.95 x10^3/uL (1.4-6.9); BASOPHIL % 0.4 % (0.0-0.4); Basophil (Absolute #) 0.03 x10^3/uL (0-0.4); Eosinophil % 0.7 % (0.00-5.0); Eosinophil (Absolute #) 0.05 x10^3/uL (0-0.5); Hematocrit 40.9 % (35-47); Hemoglobin 13.7 g/dL (12.0-16.0); IMMATURE GRAN # 0.02 x10^3u/L (0.00-0.03); IMMATURE GRAN % 0.3 % (0.00-0.4); Lymphocyte (Absolute #) 1.75 x10^3/uL (1.0-4.6); Lymphocytes % 23.8 % (24.0-44.0); Mean Cell Volume 97.1 fL (78-100); Mean Corpuscular Hemoglobin 32.5 pg (26-32); Mean Corpuscular Hgb Concent. 33.5 g/dL (32-36); Mean Platelet Volume 8.5 fL (7.5-11.0); Monocyte (Absolute #) 0.54 x10^3/uL (0.0-1.3); Monocytes % 7.4 % (0.0-12.0); Neutrophil % 67.4 % (36.0-66.0); Platelet Count 228 x10^3/uL (150-450); Red Blood Count 4.21 x10^6/uL (4.1-5.4); Red Cell Distribution Width 12.5 % (11.5-14.0); White Blood Count 7.3 x10^3/uL (4.0-10.5)
[2023-02-11 19:26] LABS: ALBUMIN 4.2 g/dL (3.5-5.0); ALKALINE PHOSPHATASE 92 U/L (38-126); ANION GAP 14.8 MEQ/L (5-15); BLOOD UREA NITROGEN 10 mg/dL (7-17); CHLORIDE 100 mmol/L (98-107); Calcium 9.5 mg/dL (8.4-10.2); Carbon Dioxide 26 mmol/L (22-30); Creatinine 1 0.73 mg/dL (0.52-1.04); EST GLOMERULAR FILTRATION RATE > 60.0 ML/MIN; Glucose 117 mg/dL (74-106); Potassium 3.8 mmol/L (3.5-5.1); SGOT/AST 28 U/L (14-36); SGPT/ALT 20 U/L (0-35); SODIUM 137 mmol/L (137-145); Total Protein 6.7 g/dL (6.3-8.2)
[2023-02-11 19:27] LABS: D-DIMER QUANTITATIVE 0.25 mg/L (0.0-0.50); INR 0.95 (0.8-3.0); PROTIME 10.4 SECONDS (9.4-12.5)
[2023-02-11] MEDS ORDERED: TYLENOL 325 MG PO ONE (22:07)
[2023-02-11] MEDS ORDERED: TYLENOL 325 MG ONE (22:11)
[2023-02-11] MEDS ORDERED: Cardizem IV 50 MG/10 ML IV ONE ×3 (23:23→23:27)
[2023-02-11] MEDS ORDERED: VALIUM 10 MG/2 ML SYRINGE IV ONE (23:24)
[2023-02-11] MEDS ORDERED: VALIUM 10 MG/2 ML SYRINGE ONE (23:27)
[2023-02-12] MEDS ORDERED: Ativan 2 MG/1 ML VIAL IV PRN (01:42)
[2023-02-12] MEDS ORDERED: Zofran 4 MG/2 ML VIAL IV PRN (01:42)
[2023-02-12] MEDS ORDERED: PROTONIX 40 MG IV IV ONE (01:42)
[2023-02-12] MEDS ORDERED: TYLENOL 325 MG PO PRN (01:42)
[2023-02-12] MEDS ORDERED: Klor Con PO ONE (02:53)
--- NOTE | 2023-02-12 03:04 | PCM.HP ---
History of Present Illness - Chief Complaint Chief Complaint: SINUS TACHYCARDIA, CHEST PRESSURE, PALPITATIONS Date: 02/12/23 History of Present Illness: This is a 67-year-old female admitted for tachycardia. She has past medical history of A-fib on Cardizem and Xarelto, lymphoma, multiple sclerosis, hyperlipidemia, hypothyroid, anxiety. She presented to the ED this evening for evaluation of palpitations and chest pressure she underwent cardiac eval with EKG, cardiac enzymes, telemetry monitoring as well as d-dimer, electrolytes and no abnormalities were found. She reports she has been on Doxycyline for laryngitis with improved of symptoms. Throughout the ED stay upon attempts with exertion she had repeated episodes of tachycardia was subsequently admitted for monitoring. - Review of Systems Cardiac: Palpitations All Other Systems: Reviewed and Negative Medications & Allergies Home Medications: Home Medication List Baclofen 10 mg [Lioresal 10 mg] 20 mg PO QID 04/08/12 [History Confirmed 02/12/23] estradioL [Estradiol] 0.5 mg PO DAILY 04/08/12 [History Confirmed 02/12/23] PANTOPRAZOLE 40 mg Tablet [Protonix 40MG Tablet] 40 mg PO DAILY 01/24/16 [History Confirmed 02/12/23] Levothyroxine Sodium 50 Mcg [Synthroid 50 Mcg] 50 mcg PO 0600 06/13/16 [History Confirmed 02/12/23] Atorvastatin Calcium [Lipitor 20MG Tablet] 20 mg PO 1800 01/20/21 [History Confirmed 02/12/23] Promethazine HCl 25 mg [Phenergan 25 mg] 25 mg PO Q6H PRN PRN 01/20/21 [History Confirmed 02/12/23] Rivaroxaban 10 mg Tablet [Xarelto 10 mg Tablet] 20 mg PO DAILY 01/20/21 [History Confirmed 02/12/23] Diazepam 5 mg [Valium 5 MG] 2.5 mg PO DAILY PRN PRN 01/30/21 [History Confirmed 02/12/23] Colestipol HCl [Colestid] 1 gm PO DAILY 10/03/21 [History Confirmed 02/12/23] Cyclosporine [Restasis Multidose] 1 drop OP BID 02/12/23 [History Confirmed 02/12/23] Diltiazem HCl 30 mg [Cardizem 30 MG] 30 mg PO BID 02/12/23 [History Confirmed 02/12/23] Doxycycline Hyclate 100 mg [Vibramycin 100 MG] 100 mg PO BID 02/12/23 [History Confirmed 02/12/23] Ferrous Sulfate [Iron] 325 mg PO DAILY 02/12/23 [History Confirmed 02/12/23] Hydromorphone HCl [Dilaudid-5] 0 mg PO DAILY 02/12/23 [History Confirmed 02/12/23] Liothyronine Sodium 5 mcg PO 0600,1800 02/12/23 [History Confirmed 02/12/23] PANTOPRAZOLE 40 mg Tablet [Protonix 40MG Tablet] 40 mg PO DAILY PRN PRN 02/12/23 [History Confirmed 02/12/23] hydrOXYzine HCL [Hydroxyzine HCl] 10 - 20 mg PO HSPRN PRN 02/12/23 [History Confirmed 02/12/23] Allergies/Adverse Reactions: Allergies Allergy/AdvReac Type Severity Reaction Status Date / Time levofloxacin [From Levaquin] Allergy Mild tendonitis Verified 02/11/23 18:48 Penicillins Allergy Unknown Rash Verified 02/11/23 18:48 chromium Allergy Rash Verified 02/11/23 18:48 formaldehyde Allergy Rash Verified 02/11/23 18:48 epinephrine AdvReac Unknown Verified 02/11/23 18:48 morphine AdvReac Unknown hallucnatio Verified 02/11/23 18:48 ns NSAIDS (Non-Steroidal AdvReac Unknown stomach Verified 02/11/23 18:48 Anti-Inflamma ulcers nalbuphine HCl [From Nubain] AdvReac hallucunati Verified 02/11/23 18:48 ons steroids AdvReac Unknown Uncoded 02/11/23 18:48 - Past Medical History Past Medical History: Yes Neurological History: Other ENT History: Other Cardiac History: Arrhythmia, High Cholesterol, Hypertension Respiratory History: No Pertinent History Endocrine Medical History: Hypothyroidism Musculoskelatal History: Osteoarthritis, Rheumatoid Arthritis GI Medical History: GERD, Gallbladder Disease History: Other Pyscho-Social History: No Pertinent History Reproductive Disorders: Cervical Cancer Comment: MULTIPLE SCLEROSIS, LYMPHOMA, PAROXSYMAL A-FIB - Female History Are you now?: No - Past Surgical History Past Surgical History: Yes Neuro Surgical History: Other Cardiac History: Cardiac Catheterization Respiratory Surgery: No Pertinent History GI Surgical History: Appendectomy Genitourinary Surgical Hx: Kidney Surgery Musculskeletal Surgical Hx: Orthopedic Surgery, Other Female Surgical History: Hysterectomy, Other Other Surgical History: odilia oopherectomy, t-11 and t12 laminectiomy, stents in kidney, PAIN PUMP - Social History Smoking Status: Former smoker How long have you smoked: 5 years Exposure to second hand smoke: No Alcohol: None Drug Use: none - Physical Exam Vital Signs: Vital Signs - 24 hr Temp Pulse Resp BP BP BP Pulse Ox 02/12/23 02:06 96.8 F 86 18 184/78 97 02/12/23 01:00 104 H 18 154/67 99 02/12/23 00:50 94 H 16 154/78 97 02/12/23 00:40 102 H 24 155/63 98 02/12/23 00:31 95 H 17 142/95 98 02/12/23 00:20 100 H 19 166/87 99 02/12/23 00:10 97 H 17 159/71 99 02/12/23 00:00 86 19 144/63 97 02/11/23 23:50 82 13 154/64 96 02/11/23 23:40 83 15 154/75 96 02/11/23 23:37 90 19 174/69 98 02/11/23 23:25 192/84 02/11/23 23:18 105 H 16 165/124 165/124 100 02/11/23 22:00 76 18 152/72 152/72 97 02/11/23 21:00 70 16 168/74 168/74 96 02/11/23 20:22 97.7 F 02/11/23 20:00 84 14 159/66 97 02/11/23 19:47 89 22 177/85 99 02/11/23 18:49 118 H 12 177/85 100 02/11/23 18:47 94 H 17 177/85 99 General Appearance: no apparent distress Neurologic Exam: alert, oriented x 3 Eye Exam: PERRL/EOMI Ears, Nose, Throat Exam: normal ENT inspection Neck Exam: normal inspection Respiratory Exam: normal breath sounds, chest tenderness, lungs clear Cardiovascular Exam: normal heart sounds, No tachycardia, No edema Gastrointestinal/Abdomen Exam: soft, normal bowel sounds Extremity Exam: normal inspection, No pedal edema Results - Labs Lab/Micro Results: Lab Results-Last 24 Hours 02/11/23 02/11/23 02/11/23 Range/Units 19:00 19:00 19:00 WBC 7.3 (4.0-10.5) x10^3/uL RBC 4.21 (4.1-5.4) x10^6/uL Hgb 13.7 (12.0-16.0) g/dL Hct 40.9 (35-47) % MCV 97.1 (78-100) fL MCH 32.5 H (26-32) pg MCHC 33.5 (32-36) g/dL RDW 12.5 (11.5-14.0) % Plt Count 228 (150-450) x10^3/uL MPV 8.5 (7.5-11.0) fL Gran % 67.4 H (36.0-66.0) % Immature Gran % (Auto) 0.3 (0.00-0.4) % Nucleat RBC Rel Count 0.0 (0.00-0.1) % Eos # (Auto) 0.05 (0-0.5) x10^3/uL Immature Gran # (Auto) 0.02 (0.00-0.03) x10^3u/L Absolute Lymphs (auto) 1.75 (1.0-4.6) x10^3/uL Absolute Monos (auto) 0.54 (0.0-1.3) x10^3/uL Absolute Nucleated RBC 0.00 (0.00-0.01) x10^3u/L Lymphocytes % 23.8 L (24.0-44.0) % Monocytes % 7.4 (0.0-12.0) % Eosinophils % 0.7 (0.00-5.0) % Basophils % 0.4 (0.0-0.4) % Absolute Granulocytes 4.95 (1.4-6.9) x10^3/uL Basophils # 0.03 (0-0.4) x10^3/uL PT 10.4 (9.4-12.5) SECONDS INR 0.95 (0.8-3.0) D-Dimer 0.25 (0.0-0.50) mg/L Sodium 137 (137-145) mmol/L Potassium 3.8 (3.5-5.1) mmol/L Chloride 100 (98-107) mmol/L Carbon Dioxide 26 (22-30) mmol/L Anion Gap 14.8 (5-15) MEQ/L BUN 10 (7-17) mg/dL Creatinine 0.73 (0.52-1.04) mg/dL Estimated GFR > 60.0 ML/MIN Glucose 117 H (74-106) mg/dL Calcium 9.5 (8.4-10.2) mg/dL Total Bilirubin 0.70 (0.2-1.3) mg/dL AST 28 (14-36) U/L ALT 20 (0-35) U/L Alkaline Phosphatase 92 (38-126) U/L Troponin I (0.000-0.034) ng/mL Serum Total Protein 6.7 (6.3-8.2) g/dL Albumin 4.2 (3.5-5.0) g/dL Thyroxine (T4) (5.53-10.96) ug/dL TSH 3rd Generation (0.47-4.68) mIU/L 02/11/23 02/11/23 02/11/23 Range/Units 19:00 19:00 19:00 WBC (4.0-10.5) x10^3/uL RBC (4.1-5.4) x10^6/uL Hgb (12.0-16.0) g/dL Hct (35-47) % MCV (78-100) fL MCH (26-32) pg MCHC (32-36) g/dL RDW (11.5-14.0) % Plt Count (150-450) x10^3/uL MPV (7.5-11.0) fL Gran % (36.0-66.0) % Immature Gran % (Auto) (0.00-0.4) % Nucleat RBC Rel Count (0.00-0.1) % Eos # (Auto) (0-0.5) x10^3/uL Immature Gran # (Auto) (0.00-0.03) x10^3u/L Absolute Lymphs (auto) (1.0-4.6) x10^3/uL Absolute Monos (auto) (0.0-1.3) x10^3/uL Absolute Nucleated RBC (0.00-0.01) x10^3u/L Lymphocytes % (24.0-44.0) % Monocytes % (0.0-12.0) % Eosinophils % (0.00-5.0) % Basophils % (0.0-0.4) % Absolute Granulocytes (1.4-6.9) x10^3/uL Basophils # (0-0.4) x10^3/uL PT (9.4-12.5) SECONDS INR (0.8-3.0) D-Dimer (0.0-0.50) mg/L Sodium (137-145) mmol/L Potassium (3.5-5.1) mmol/L Chloride (98-107) mmol/L Carbon Dioxide (22-30) mmol/L Anion Gap (5-15) MEQ/L BUN (7-17) mg/dL Creatinine (0.52-1.04) mg/dL Estimated GFR ML/MIN Glucose (74-106) mg/dL Calcium (8.4-10.2) mg/dL Total Bilirubin (0.2-1.3) mg/dL AST (14-36) U/L ALT (0-35) U/L Alkaline Phosphatase (38-126) U/L Troponin I < 0.012 (0.000-0.034) ng/mL Serum Total Protein (6.3-8.2) g/dL Albumin (3.5-5.0) g/dL Thyroxine (T4) 10.7 (5.53-10.96) ug/dL TSH 3rd Generation 0.623 (0.47-4.68) mIU/L 02/11/23 Range/Units 22:00 WBC (4.0-10.5) x10^3/uL RBC (4.1-5.4) x10^6/uL Hgb (12.0-16.0) g/dL Hct (35-47) % MCV (78-100) fL MCH (26-32) pg MCHC (32-36) g/dL RDW (11.5-14.0) % Plt Count (150-450) x10^3/uL MPV (7.5-11.0) fL Gran % (36.0-66.0) % Immature Gran % (Auto) (0.00-0.4) % Nucleat RBC Rel Count (0.00-0.1) % Eos # (Auto) (0-0.5) x10^3/uL Immature Gran # (Auto) (0.00-0.03) x10^3u/L Absolute Lymphs (auto) (1.0-4.6) x10^3/uL Absolute Monos (auto) (0.0-1.3) x10^3/uL Absolute Nucleated RBC (0.00-0.01) x10^3u/L Lymphocytes % (24.0-44.0) % Monocytes % (0.0-12.0) % Eosinophils % (0.00-5.0) % Basophils % (0.0-0.4) % Absolute Granulocytes (1.4-6.9) x10^3/uL Basophils # (0-0.4) x10^3/uL PT (9.4-12.5) SECONDS INR (0.8-3.0) D-Dimer (0.0-0.50) mg/L Sodium (137-145) mmol/L Potassium (3.5-5.1) mmol/L Chloride (98-107) mmol/L Carbon Dioxide (22-30) mmol/L Anion Gap (5-15) MEQ/L BUN (7-17) mg/dL Creatinine (0.52-1.04) mg/dL Estimated GFR ML/MIN Glucose (74-106) mg/dL Calcium (8.4-10.2) mg/dL Total Bilirubin (0.2-1.3) mg/dL AST (14-36) U/L ALT (0-35) U/L Alkaline Phosphatase (38-126) U/L Troponin I < 0.012 (0.000-0.034) ng/mL Serum Total Protein (6.3-8.2) g/dL Albumin (3.5-5.0) g/dL Thyroxine (T4) (5.53-10.96) ug/dL TSH 3rd Generation (0.47-4.68) mIU/L - Radiology Impressions Radiology Exams & Impressions: Radiology Procedures Category Date Time Status CHEST 1 VIEW (PORTABLE) Stat Exams 02/11/23 18:50 Taken - Other Procedures and Tests Respiratory Therapy 02/12/23 05:00 EKG STAT Assessment/Plan (1) Asymptomatic PVCs Current Visit: Yes Status: Acute Code(s): I49.3 - VENTRICULAR PREMATURE DEPOLARIZATION (2) Palpitations Current Visit: Yes Status: Acute Code(s): R00.2 - PALPITATIONS (3) Paroxysmal sinus tachycardia Current Visit: Yes Status: Acute Assessment & Plan: ASSESSMENT #Sinus tachycardia #A-fib, paroxysmal #H/O multiple sclerosis #Diabetes #Hypothyroid, TSH 0.6 #Anxiety PLAN -Monitor on telemetry -40 KCL, check mag level -Continue Cardizem and Xarelto -Check UA Prophylaxis: Anticoagulated Entire encounter performed via telemedicine Code(s): I47.1 - SUPRAVENTRICULAR TACHYCARDIA Telemedicine Encounter - Telemedicine Encounter Telemedicine Encounter: The entirety of this encounter was performed via Telemedicine"
[2023-02-12 03:17] LABS: BASOPHIL % 0.4 % (0.0-0.4); Basophil (Absolute #) 0.03 x10^3/uL (0-0.4); Eosinophil % 0.1 % (0.00-5.0); Eosinophil (Absolute #) 0.01 x10^3/uL (0-0.5); Hematocrit 40.7 % (35-47); Hemoglobin 13.6 g/dL (12.0-16.0); IMMATURE GRAN # 0.01 x10^3u/L (0.00-0.03); IMMATURE GRAN % 0.1 % (0.00-0.4); Lymphocyte (Absolute #) 1.04 x10^3/uL (1.0-4.6); Lymphocytes % 14.6 % (24.0-44.0); Mean Cell Volume 96.7 fL (78-100); Mean Corpuscular Hemoglobin 32.3 pg (26-32); Mean Corpuscular Hgb Concent. 33.4 g/dL (32-36); Mean Platelet Volume 8.2 fL (7.5-11.0); Monocyte (Absolute #) 0.43 x10^3/uL (0.0-1.3); Neutrophil % 78.8 % (36.0-66.0); Platelet Count 217 x10^3/uL (150-450); Red Blood Count 4.21 x10^6/uL (4.1-5.4); Red Cell Distribution Width 12.3 % (11.5-14.0); White Blood Count 7.1 x10^3/uL (4.0-10.5)
[2023-02-12 03:32] LABS: ALKALINE PHOSPHATASE 83 U/L (38-126); BLOOD UREA NITROGEN 9 mg/dL (7-17); CHLORIDE 104 mmol/L (98-107); Calcium 9.2 mg/dL (8.4-10.2); Carbon Dioxide 27 mmol/L (22-30); Creatinine 1 0.66 mg/dL (0.52-1.04); EST GLOMERULAR FILTRATION RATE > 60.0 ML/MIN; Glucose 107 mg/dL (74-106); Potassium 3.8 mmol/L (3.5-5.1); SGOT/AST 28 U/L (14-36); SGPT/ALT 20 U/L (0-35); SODIUM 140 mmol/L (137-145); Total Protein 6.6 g/dL (6.3-8.2)
[2023-02-12 03:54] LABS: Appearance Clear (Clear); Bacteria None Seen /HPF (None Seen); Bilirubin Negative (Negative); Blood Negative (Negative); Epithelial Cells None Seen /HPF (None Seen); Glucose, Urine Negative (Negative); Hyaline Casts NONE SEEN /LPF (0-2); Ketones Negative (Negative); Leukocyte Esterase Negative (Negative); Nitrite Negative (Negative); Protein,Urine Dip Negative (Negative); Specific Gravity <=1.005 (1.005-1.030); Urobilinogen 0.2 mg/dL (0.2); WBC 0-2 /HPF (0-5)
[2023-02-12 03:56] LABS: ADD URINE CULTURE? NO (NO)
[2023-02-12] MEDS ORDERED: Valium 5 MG PO PRN (07:14)
[2023-02-12] MEDS ORDERED: Protonix 40MG Tablet PO PRN (07:14)
[2023-02-12] MEDS ORDERED: NON-FORMULARY ITEM (Hydroxyzine Hcl [Hydroxyzine Hcl] 10 MG Tablet) PO PRN (07:14)
[2023-02-12] MEDS ORDERED: PHENERGAN 25 MG PO PRN (07:14)
[2023-02-12] MEDS ORDERED: ATARAX 25 MG PO PRN (07:30)
[2023-02-12] MEDS ORDERED: SYNTHROID 50 MCG PO SCH (07:30)
[2023-02-12] MEDS ORDERED: MEDICATION INTERVENTION MC SCH ×3 (07:45→08:00)
--- NOTE | 2023-02-12 08:37 | XRAY ---
Indication: Chest pain. Comparison: October 03, 2021 Portable chest again demonstrates normal heart, lungs, and bony thorax with incidental left hilar calcified granulomas.
[2023-02-12] MEDS: LIORESAL 10 MG PO SCH ×2 (08:50→12:56)
[2023-02-12] MEDS ORDERED: ESTRACE 1 MG PO SCH (10:00)
[2023-02-12] MEDS ORDERED: Vibramycin 100 MG PO SCH (10:00)
[2023-02-12] MEDS ORDERED: ESTRADIOL 0.5 MG PO SCH (10:00)
[2023-02-12] MEDS ORDERED: NON-FORMULARY ITEM (Cyclosporine [Restasis Multidose] 5.5 ML Drops) OP SCH (10:00)
[2023-02-12] MEDS ORDERED: Cardizem 30 MG PO SCH (10:00)
[2023-02-12] MEDS ORDERED: NON-FORMULARY ITEM (Colestipol Hcl [Colestid] 1 GM Tablet) PO SCH (10:00)
[2023-02-12] MEDS ORDERED: XARELTO 10 MG TABLET PO SCH ×3 (10:00→18:00)
[2023-02-12] MEDS ORDERED: Protonix 40MG Tablet PO SCH (10:00)
[2023-02-12] MEDS ORDERED: FEOSOL 325 MG PO SCH (10:00)
--- NOTE | 2023-02-12 13:09 | PCM.NOTE ---
Date and Time: 02/12/23 1309 Subjective Assessment: Patient with a known Hx paroxysmal AFib was admitted with tachycardia,Afib RVR and was given IV Cardiazem in ER. B/P has been up to 170s/90s. Patient is now in NSR . Patient is followed by [facility] Dr Drake . I spoke to Dr Drake and plan is to hold T3/Cytomel and add betablocker. He will see her next week. Holter monitor to be placed.Patient is comfortable with this plan. - Review of Systems Constitutional: Fatigue Eyes: No Symptoms Ears, Nose, & Throat: Sinus Drainage Respiratory: Cough (treated for bronchitis and was on Doxy) Cardiac: Palpitations Abdominal/Gastrointestinal: No Symptoms Genitourinary Symptoms: No Symptoms Musculoskeletal: Back Pain (chronic has a pain pump) Skin: No Symptoms Neurological: Other ( has MS,no new focal s/s) Psychological: Anxiety Endocrine: No Symptoms Hematologic/Lymphatic: No Symptoms, Other (Hx lymphoma) OBJECTIVE DATA Vital Signs: Vital Signs - 24 hr Temp Pulse Resp BP BP BP Pulse Ox 02/12/23 11:12 96.9 F 70 17 138/64 96 02/12/23 07:08 97.3 F 80 17 144/67 97 02/12/23 04:00 97.2 F 89 18 183/83 97 02/12/23 02:06 96.8 F 86 18 184/78 97 02/12/23 01:00 104 H 18 154/67 99 02/12/23 00:50 94 H 16 154/78 97 02/12/23 00:40 102 H 24 155/63 98 02/12/23 00:31 95 H 17 142/95 98 02/12/23 00:20 100 H 19 166/87 99 02/12/23 00:10 97 H 17 159/71 99 02/12/23 00:00 86 19 144/63 97 02/11/23 23:50 82 13 154/64 96 02/11/23 23:40 83 15 154/75 96 02/11/23 23:37 90 19 174/69 98 02/11/23 23:25 192/84 02/11/23 23:18 105 H 16 165/124 165/124 100 02/11/23 22:00 76 18 152/72 152/72 97 02/11/23 21:00 70 16 168/74 168/74 96 02/11/23 20:22 97.7 F 02/11/23 20:00 84 14 159/66 97 02/11/23 19:47 89 22 177/85 99 02/11/23 18:49 118 H 12 177/85 100 02/11/23 18:47 94 H 17 177/85 99 Pain Assessment - Last Documented Pain Intensity 0 Pain Scale Used 0-10 Pain Scale Intake and Output: Intake & Output 02/10/23 02/11/23 02/12/23 02/13/23 11:59 11:59 11:59 11:59 Intake Total 540 Output Total 325 Balance 215 Weight 76.9 kg Lab Results: Lab Results-Last 24 Hours 02/11/23 02/11/23 02/11/23 Range/Units 19:00 19:00 19:00 WBC 7.3 (4.0-10.5) x10^3/uL RBC 4.21 (4.1-5.4) x10^6/uL Hgb 13.7 (12.0-16.0) g/dL Hct 40.9 (35-47) % MCV 97.1 (78-100) fL MCH 32.5 H (26-32) pg MCHC 33.5 (32-36) g/dL RDW 12.5 (11.5-14.0) % Plt Count 228 (150-450) x10^3/uL MPV 8.5 (7.5-11.0) fL Gran % 67.4 H (36.0-66.0) % Immature Gran % (Auto) 0.3 (0.00-0.4) % Nucleat RBC Rel Count 0.0 (0.00-0.1) % Eos # (Auto) 0.05 (0-0.5) x10^3/uL Immature Gran # (Auto) 0.02 (0.00-0.03) x10^3u/L Absolute Lymphs (auto) 1.75 (1.0-4.6) x10^3/uL Absolute Monos (auto) 0.54 (0.0-1.3) x10^3/uL Absolute Nucleated RBC 0.00 (0.00-0.01) x10^3u/L Lymphocytes % 23.8 L (24.0-44.0) % Monocytes % 7.4 (0.0-12.0) % Eosinophils % 0.7 (0.00-5.0) % Basophils % 0.4 (0.0-0.4) % Absolute Granulocytes 4.95 (1.4-6.9) x10^3/uL Basophils # 0.03 (0-0.4) x10^3/uL PT 10.4 (9.4-12.5) SECONDS INR 0.95 (0.8-3.0) D-Dimer 0.25 (0.0-0.50) mg/L Sodium 137 (137-145) mmol/L Potassium 3.8 (3.5-5.1) mmol/L Chloride 100 (98-107) mmol/L Carbon Dioxide 26 (22-30) mmol/L Anion Gap 14.8 (5-15) MEQ/L BUN 10 (7-17) mg/dL Creatinine 0.73 (0.52-1.04) mg/dL Estimated GFR > 60.0 ML/MIN Glucose 117 H (74-106) mg/dL Calcium 9.5 (8.4-10.2) mg/dL Magnesium (1.6-2.3) mg/dL Total Bilirubin 0.70 (0.2-1.3) mg/dL AST 28 (14-36) U/L ALT 20 (0-35) U/L Alkaline Phosphatase 92 (38-126) U/L Troponin I (0.000-0.034) ng/mL Serum Total Protein 6.7 (6.3-8.2) g/dL Albumin 4.2 (3.5-5.0) g/dL Thyroxine (T4) (5.53-10.96) ug/dL TSH 3rd Generation (0.47-4.68) mIU/L Urine Color (Yellow) Urine Appearance (Clear) Urine pH (4.6-8.0) Ur Specific [place] (1.005-1.030) Urine Protein (Negative) Urine Glucose (UA) (Negative) mg/dL Urine Ketones (Negative) Urine Blood (Negative) Urine Nitrite (Negative) Urine Bilirubin (Negative) Urine Urobilinogen (0.2) mg/dL Ur Leukocyte Esterase (Negative) U Hyaline Cast (Auto) (0-2) /LPF Urine Microscopic RBC (0-5) /HPF Urine Microscopic WBC (0-5) /HPF Ur Epithelial Cells (None Seen) /HPF Urine Bacteria (None Seen) /HPF Urine Culture Reflexed (NO) 02/11/23 02/11/23 02/11/23 Range/Units 19:00 19:00 19:00 WBC (4.0-10.5) x10^3/uL RBC (4.1-5.4) x10^6/uL Hgb (12.0-16.0) g/dL Hct (35-47) % MCV (78-100) fL MCH (26-32) pg MCHC (32-36) g/dL RDW (11.5-14.0) % Plt Count (150-450) x10^3/uL MPV (7.5-11.0) fL Gran % (36.0-66.0) % Immature Gran % (Auto) (0.00-0.4) % Nucleat RBC Rel Count (0.00-0.1) % Eos # (Auto) (0-0.5) x10^3/uL Immature Gran # (Auto) (0.00-0.03) x10^3u/L Absolute Lymphs (auto) (1.0-4.6) x10^3/uL Absolute Monos (auto) (0.0-1.3) x10^3/uL Absolute Nucleated RBC (0.00-0.01) x10^3u/L Lymphocytes % (24.0-44.0) % Monocytes % (0.0-12.0) % Eosinophils % (0.00-5.0) % Basophils % (0.0-0.4) % Absolute Granulocytes (1.4-6.9) x10^3/uL Basophils # (0-0.4) x10^3/uL PT (9.4-12.5) SECONDS INR (0.8-3.0) D-Dimer (0.0-0.50) mg/L Sodium (137-145) mmol/L Potassium (3.5-5.1) mmol/L Chloride (98-107) mmol/L Carbon Dioxide (22-30) mmol/L Anion Gap (5-15) MEQ/L BUN (7-17) mg/dL Creatinine (0.52-1.04) mg/dL Estimated GFR ML/MIN Glucose (74-106) mg/dL Calcium (8.4-10.2) mg/dL Magnesium (1.6-2.3) mg/dL Total Bilirubin (0.2-1.3) mg/dL AST (14-36) U/L ALT (0-35) U/L Alkaline Phosphatase (38-126) U/L Troponin I < 0.012 (0.000-0.034) ng/mL Serum Total Protein (6.3-8.2) g/dL Albumin (3.5-5.0) g/dL Thyroxine (T4) 10.7 (5.53-10.96) ug/dL TSH 3rd Generation 0.623 (0.47-4.68) mIU/L Urine Color (Yellow) Urine Appearance (Clear) Urine pH (4.6-8.0) Ur Specific [place] (1.005-1.030) Urine Protein (Negative) Urine Glucose (UA) (Negative) mg/dL Urine Ketones (Negative) Urine Blood (Negative) Urine Nitrite (Negative) Urine Bilirubin (Negative) Urine Urobilinogen (0.2) mg/dL Ur Leukocyte Esterase (Negative) U Hyaline Cast (Auto) (0-2) /LPF Urine Microscopic RBC (0-5) /HPF Urine Microscopic WBC (0-5) /HPF Ur Epithelial Cells (None Seen) /HPF Urine Bacteria (None Seen) /HPF Urine Culture Reflexed (NO) 02/11/23 02/12/23 02/12/23 Range/Units 22:00 03:00 03:10 WBC (4.0-10.5) x10^3/uL RBC (4.1-5.4) x10^6/uL Hgb (12.0-16.0) g/dL Hct (35-47) % MCV (78-100) fL MCH (26-32) pg MCHC (32-36) g/dL RDW (11.5-14.0) % Plt Count (150-450) x10^3/uL MPV (7.5-11.0) fL Gran % (36.0-66.0) % Immature Gran % (Auto) (0.00-0.4) % Nucleat RBC Rel Count (0.00-0.1) % Eos # (Auto) (0-0.5) x10^3/uL Immature Gran # (Auto) (0.00-0.03) x10^3u/L Absolute Lymphs (auto) (1.0-4.6) x10^3/uL Absolute Monos (auto) (0.0-1.3) x10^3/uL Absolute Nucleated RBC (0.00-0.01) x10^3u/L Lymphocytes % (24.0-44.0) % Monocytes % (0.0-12.0) % Eosinophils % (0.00-5.0) % Basophils % (0.0-0.4) % Absolute Granulocytes (1.4-6.9) x10^3/uL Basophils # (0-0.4) x10^3/uL PT (9.4-12.5) SECONDS INR (0.8-3.0) D-Dimer (0.0-0.50) mg/L Sodium (137-145) mmol/L Potassium (3.5-5.1) mmol/L Chloride (98-107) mmol/L Carbon Dioxide (22-30) mmol/L Anion Gap (5-15) MEQ/L BUN (7-17) mg/dL Creatinine (0.52-1.04) mg/dL Estimated GFR ML/MIN Glucose (74-106) mg/dL Calcium (8.4-10.2) mg/dL Magnesium 2.0 (1.6-2.3) mg/dL Total Bilirubin (0.2-1.3) mg/dL AST (14-36) U/L ALT (0-35) U/L Alkaline Phosphatase (38-126) U/L Troponin I < 0.012 0.015 (0.000-0.034) ng/mL Serum Total Protein (6.3-8.2) g/dL Albumin (3.5-5.0) g/dL Thyroxine (T4) (5.53-10.96) ug/dL TSH 3rd Generation (0.47-4.68) mIU/L Urine Color (Yellow) Urine Appearance (Clear) Urine pH (4.6-8.0) Ur Specific [place] (1.005-1.030) Urine Protein (Negative) Urine Glucose (UA) (Negative) mg/dL Urine Ketones (Negative) Urine Blood (Negative) Urine Nitrite (Negative) Urine Bilirubin (Negative) Urine Urobilinogen (0.2) mg/dL Ur Leukocyte Esterase (Negative) U Hyaline Cast (Auto) (0-2) /LPF Urine Microscopic RBC (0-5) /HPF Urine Microscopic WBC (0-5) /HPF Ur Epithelial Cells (None Seen) /HPF Urine Bacteria (None Seen) /HPF Urine Culture Reflexed (NO) 02/12/23 02/12/23 02/12/23 Range/Units 03:10 03:10 03:27 WBC 7.1 (4.0-10.5) x10^3/uL RBC 4.21 (4.1-5.4) x10^6/uL Hgb 13.6 (12.0-16.0) g/dL Hct 40.7 (35-47) % MCV 96.7 (78-100) fL MCH 32.3 H (26-32) pg MCHC 33.4 (32-36) g/dL RDW 12.3 (11.5-14.0) % Plt Count 217 (150-450) x10^3/uL MPV 8.2 (7.5-11.0) fL Gran % 78.8 H (36.0-66.0) % Immature Gran % (Auto) 0.1 (0.00-0.4) % Nucleat RBC Rel Count 0.0 (0.00-0.1) % Eos # (Auto) 0.01 (0-0.5) x10^3/uL Immature Gran # (Auto) 0.01 (0.00-0.03) x10^3u/L Absolute Lymphs (auto) 1.04 (1.0-4.6) x10^3/uL Absolute Monos (auto) 0.43 (0.0-1.3) x10^3/uL Absolute Nucleated RBC 0.00 (0.00-0.01) x10^3u/L Lymphocytes % 14.6 L (24.0-44.0) % Monocytes % 6.0 (0.0-12.0) % Eosinophils % 0.1 (0.00-5.0) % Basophils % 0.4 (0.0-0.4) % Absolute Granulocytes 5.60 (1.4-6.9) x10^3/uL Basophils # 0.03 (0-0.4) x10^3/uL PT (9.4-12.5) SECONDS INR (0.8-3.0) D-Dimer (0.0-0.50) mg/L Sodium 140 (137-145) mmol/L Potassium 3.8 (3.5-5.1) mmol/L Chloride 104 (98-107) mmol/L Carbon Dioxide 27 (22-30) mmol/L Anion Gap 13.0 (5-15) MEQ/L BUN 9 (7-17) mg/dL Creatinine 0.66 (0.52-1.04) mg/dL Estimated GFR > 60.0 ML/MIN Glucose 107 H (74-106) mg/dL Calcium 9.2 (8.4-10.2) mg/dL Magnesium (1.6-2.3) mg/dL Total Bilirubin 0.70 (0.2-1.3) mg/dL AST 28 (14-36) U/L ALT 20 (0-35) U/L Alkaline Phosphatase 83 (38-126) U/L Troponin I (0.000-0.034) ng/mL Serum Total Protein 6.6 (6.3-8.2) g/dL Albumin 4.0 (3.5-5.0) g/dL Thyroxine (T4) (5.53-10.96) ug/dL TSH 3rd Generation (0.47-4.68) mIU/L Urine Color Yellow (Yellow) Urine Appearance Clear (Clear) Urine pH 8.0 (4.6-8.0) Ur Specific [place] <=1.005 (1.005-1.030) Urine Protein Negative (Negative) Urine Glucose (UA) Negative (Negative) mg/dL Urine Ketones Negative (Negative) Urine Blood Negative (Negative) Urine Nitrite Negative (Negative) Urine Bilirubin Negative (Negative) Urine Urobilinogen 0.2 (0.2) mg/dL Ur Leukocyte Esterase Negative (Negative) U Hyaline Cast (Auto) NONE SEEN (0-2) /LPF Urine Microscopic RBC 3-5 (0-5) /HPF Urine Microscopic WBC 0-2 (0-5) /HPF Ur Epithelial Cells None Seen (None Seen) /HPF Urine Bacteria None Seen (None Seen) /HPF Urine Culture Reflexed NO (NO) Radiology Exams: Radiology Procedures Category Date Time Status CHEST 1 VIEW (PORTABLE) Stat Exams 02/11/23 18:50 Completed Assessment/Plan (1) Palpitations Status: Resolved Assessment & Plan: was in Afib RVR Code(s): R00.2 - PALPITATIONS (2) Paroxysmal A-fib Status: Chronic Assessment & Plan: is on Xarelto Code(s): I48.0 - PAROXYSMAL ATRIAL FIBRILLATION (3) Chest pain Status: Resolved Qualifiers: Chest pain type: precordial pain Qualified Code(s): R07.2 - Precordial pain Assessment & Plan: resolved in ER Code(s): R07.9 - CHEST PAIN, UNSPECIFIED (4) Paroxysmal sinus tachycardia Status: Resolved Code(s): I47.1 - SUPRAVENTRICULAR TACHYCARDIA (5) Elevated blood pressure reading Status: Acute Assessment & Plan: add [employer] Code(s): R03.0 - ELEVATED BLOOD-PRESSURE READING, W/O DIAGNOSIS OF HTN
[2023-02-12] MEDS ORDERED: Lopressor 25MG Tab PO SCH (15:06)
[2023-02-12 16:40] VITALS: O2SAT 97
[2023-02-12 17:27] VITALS: BP 157/73; PULSE 65
[2023-02-12] MEDS ORDERED: ZOCOR 20MG PO SCH (18:00)
[2023-02-12] MEDS ORDERED: NON-FORMULARY ITEM (Liothyronine Sodium [Liothyronine Sodium] 5 MCG Tablet) PO SCH (18:00)
[2023-02-12] MEDS ORDERED: NON-FORMULARY ITEM (Atorvastatin Calcium 20 MG Tab) PO SCH (18:00)
--- NOTE | 2023-02-13 11:56 | PCM.DCORD ---
- Discharge Disposition: Home, Self-Care Condition: Stable Prescriptions: New Metoprolol Tartrate 25 mg [Lopressor 25MG Tab] 25 mg PO BID 30 Days #60 tablet Continue Baclofen 10 mg [Lioresal 10 mg] 20 mg PO QID estradioL [Estradiol] 0.5 mg PO DAILY PANTOPRAZOLE 40 mg Tablet [Protonix 40MG Tablet] 40 mg PO DAILY Levothyroxine Sodium 50 Mcg [Synthroid 50 Mcg] 50 mcg PO 0600 Rivaroxaban 10 mg Tablet [Xarelto 10 mg Tablet] 20 mg PO DAILY Atorvastatin Calcium [Lipitor 20MG Tablet] 20 mg PO 1800 Promethazine HCl 25 mg [Phenergan 25 mg] 25 mg PO Q6H PRN PRN PRN Reason: Nausea Diazepam 5 mg [Valium 5 MG] 2.5 mg PO DAILY PRN PRN PRN Reason: Muscle Spasms Colestipol HCl [Colestid] 1 gm PO DAILY Ferrous Sulfate [Iron] 325 mg PO DAILY Cyclosporine [Restasis Multidose] 1 drop OP BID hydrOXYzine HCL [Hydroxyzine HCl] 10 - 20 mg PO HSPRN PRN PRN Reason: sleep Doxycycline Hyclate 100 mg [Vibramycin 100 MG] 100 mg PO BID Diltiazem HCl 30 mg [Cardizem 30 MG] 30 mg PO BID PANTOPRAZOLE 40 mg Tablet [Protonix 40MG Tablet] 40 mg PO DAILY PRN PRN PRN Reason: Indigestion Hydromorphone HCl [Dilaudid] 0 mg PO DAILY Discontinued Liothyronine Sodium 5 mcg PO 0600,1800 Instructions: Tachycardia (DC) Additional Instructions: Holter Monitor placed -to be read by Dr Mclean Follow up with: PAULINA MCLEAN [CONSULTING PHYSICIAN] - 02/19/23 11:15 am ([place] Office) KATINA VILLAVICENCIO DO [Primary Care Provider] - 03/05/23 9:00 am
== END 2023-02-12 18:27 | disposition home or self-care (01) ==
LOC: ED 18:46 → MED SURG 02-12 01:38
PROVIDERS: ADMIT Internal Medicine; ATTEND Family Medicine
DX: I49.3 Ventricular premature depolarization (principal); R00.2 Palpitations; I48.91 Unspecified atrial fibrillation; I47.1 Supraventricular tachycardia; I10 Essential (primary) hypertension; R07.9 Chest pain, unspecified; R03.0 Elevated blood-pressure reading, without diagnosis of hypertension; E11.9 Type 2 diabetes mellitus without complications; E78.5 Hyperlipidemia, unspecified; E03.9 Hypothyroidism, unspecified; F41.9 Anxiety disorder, unspecified; Z79.01 Long term (current) use of anticoagulants; Z79.899 Other long term (current) drug therapy; Z20.828 Contact with and (suspected) exposure to other viral communicable diseases; Z85.41 Personal history of malignant neoplasm of cervix uteri
CPT/HCPCS: 36000; 36415; 71045; 80053; 81001; 83735; 84436; 84443; 84479; 84484; 85025; 85379; 85610; 93005; 93041; 93225; 93268; 96374; 96375; 99285; G0378; J2060; J3360; A9270-GY

== ENCOUNTER 2023-06-05 14:03 | Emergency (ER) | payer MEDICARE ==
--- NOTE | 2023-06-05 14:06 | ERPHSYRPT ---
- History of Present Illness Time Seen by Provider: 06/05/23 14:06 Historian: patient Exam Limitations: no limitations Physician History: This is a 68-year-old overweight white female patient with no documented history of coronary artery disease but does have a history of atrial fibrillation on Xarelto, diltiazem and metoprolol presents to the emergency department with epigastric spasms that began yesterday intermittently and were more intense and lasting longer today. She has no associated primary chest pain, she denies nausea vomiting and diarrhea. Patient has had an appendectomy, cholecystectomy and a total abdominal hysterectomy with bilateral salpingo-oophorectomy performed in the past. Patient has a pain doctor, Dr. Apple. She has a pain pump in place that is not controlled by Dr. Apple. She sees director of strategic communications Dr. Drake for her arrhythmia issues. Patient has a history of gastroesophageal reflux disease, hypothyroidism, hyperlipidemia and chronic anemia. Timing/Duration: yesterday Activities at Onset: none Quality: cramping Abdominal Pain Onset Location: epigastric (Describes as epigastric spasms) Pain Radiation: no radiation Severity of Pain-Max: moderate Severity of Pain-Current: mild Modifying Factors: Improves With: nothing (To moderate) Associated Symptoms: denies symptoms Previous symptoms: no prior history Allergies/Adverse Reactions: levofloxacin [From Levaquin] Allergy (Mild, Verified 06/05/23 14:22) tendonitis Penicillins Allergy (Unknown, Verified 06/05/23 14:22) Rash chromium Allergy (Verified 06/05/23 14:22) Rash formaldehyde Allergy (Verified 06/05/23 14:22) Rash epinephrine Adverse Reaction (Unknown, Verified 06/05/23 14:22) pt states it increases her heart rate and makes her feel stoned morphine Adverse Reaction (Unknown, Verified 06/05/23 14:22) hallucnations NSAIDS (Non-Steroidal Anti-Inflamma Adverse Reaction (Unknown, Verified 06/05/23 14:22) stomach ulcers nalbuphine HCl [From Nubain] Adverse Reaction (Verified 06/05/23 14:22) hallucunations steroids Adverse Reaction (Unknown, Uncoded 06/05/23 14:22) pt states they makes her flush feel hot and increases her blood pressure Home Medications: Baclofen 10 mg [Lioresal 10 mg] 20 mg PO QID 04/08/12 [History] estradioL [Estradiol] 0.5 mg PO DAILY 04/08/12 [History] PANTOPRAZOLE 40 mg Tablet [Protonix 40MG Tablet] 40 mg PO DAILY 01/24/16 [History] Levothyroxine Sodium 50 Mcg [Synthroid 50 Mcg] 50 mcg PO 0600 06/13/16 [History] Atorvastatin Calcium [Lipitor 20MG Tablet] 20 mg PO 1800 01/20/21 [History] Promethazine HCl 25 mg [Phenergan 25 mg] 25 mg PO Q6H PRN PRN 01/20/21 [History] Rivaroxaban 10 mg Tablet [Xarelto 10 mg Tablet] 20 mg PO DAILY 01/20/21 [History] Diazepam 5 mg [Valium 5 MG] 2.5 mg PO DAILY PRN PRN 01/30/21 [History] Colestipol HCl [Colestid] 1 gm PO DAILY 10/03/21 [History] Cyclosporine [Restasis Multidose] 1 drop OP BID 02/12/23 [History] Diltiazem HCl 30 mg [Cardizem 30 MG] 30 mg PO BID 02/12/23 [History] Doxycycline Hyclate 100 mg [Vibramycin 100 MG] 100 mg PO BID 02/12/23 [History] Ferrous Sulfate [Iron] 325 mg PO DAILY 02/12/23 [History] Hydromorphone HCl [Dilaudid] 0 mg PO DAILY 02/12/23 [History] PANTOPRAZOLE 40 mg Tablet [Protonix 40MG Tablet] 40 mg PO DAILY PRN PRN 02/12/23 [History] hydrOXYzine HCL [Hydroxyzine HCl] 10 - 20 mg PO HSPRN PRN 02/12/23 [History] Hx Tetanus, Diphtheria Vaccination/Date Given: Yes Hx Influenza Vaccination/Date Given: Yes Hx Pneumococcal Vaccination/Date Given: No Travel Risk - International Travel Have you traveled outside of the country in past 3 weeks: No - Coronavirus Screening Are you exhibiting any of the following symptoms?: No Close contact with a COVID-19 positive Pt in past 14-21 Days: No - Vaccine Status Have you recieved a Covid-19 vaccination: Yes Incident Response Manager: Pfizer - Vaccination Dates Date of 2cond Vaccination (if applicable): unknown - Review of Systems Constitutional: No Symptoms Eyes: No Symptoms Ears, Nose, & Throat: No Symptoms Respiratory: No Symptoms Abdominal/Gastrointestinal: Abdominal Pain, No Nausea (Epigastric spasms), No Vomiting, No Diarrhea, No Constipation, No Appetite Changes Genitourinary Symptoms: No Symptoms Musculoskeletal: No Symptoms Skin: No Symptoms Neurological: No Symptoms Psychological: No Symptoms Endocrine: No Symptoms Hematologic/Lymphatic: No Symptoms Immunological/Allergic: No Symptoms All Other Systems: Reviewed and Negative - Past Medical History Pertinent Past Medical History: Yes Neurological History: Other ENT History: Other Cardiac History: Arrhythmia, High Cholesterol, Hypertension Respiratory History: Other Endocrine Medical History: Hypothyroidism, Other Musculoskeletal History: Osteoarthritis, Other GI Medical History: GERD, Gallbladder Disease History: Other Psycho-Social History: No Pertinent History Female Reproductive Disorders: Cervical Cancer Other Medical History: PATIENT HAD LYMPHOMA - IN REMISSION WITH REGULAR BLOOD WORK. ALSO HX OF CERVICAL CANCER WITH OOPHORECTOMY AND HYSTERECTOMY. 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 HX OF 3 SURGERIES ON LEFT ANKLE FOR TENDON ISSUES. HAD INJECTION LEFT HIP IN NOVEMBER FOR BURSITIS - Past Surgical History Past Surgical History: Yes Neuro Surgical History: Other Cardiac: Cardiac Catheterization Respiratory: No Pertinent History Gastrointestinal: Appendectomy Genitourinary: Kidney Surgery Musculoskeletal: Orthopedic Surgery, Other Female Surgical History: Hysterectomy, Other Other Surgical History: odilia oopherectomy, t-11 and t12 laminectiomy, stents in kidney, PAIN PUMP - Social History Smoking Status: Former smoker How long have you smoked: 5 years Exposure to second hand smoke: No Drug Use: none Patient Lives Alone: No - Nursing Vital Signs Nursing Vital Signs: Initial Vital Signs Temperature 98.3 F 06/05/23 14:10 Pulse Rate 66 06/05/23 14:10 Blood Pressure 165/72 06/05/23 14:10 O2 Sat by Pulse Oximetry 100 06/05/23 14:10 Pain Scale Pain Intensity 8 - Physical Exam General Appearance: no apparent distress, alert, anxiety, obese Eye Exam: PERRL/EOMI, eyes nml inspection Ears, Nose, Throat Exam: normal ENT inspection, moist mucous membranes Neck Exam: normal inspection, non-tender, supple, full range of motion Respiratory Exam: normal breath sounds, lungs clear, airway intact, No chest ten derness, No respiratory distress Cardiovascular Exam: regular rate/rhythm, normal heart sounds, normal peripheral pulses Gastrointestinal/Abdomen Exam: soft, normal bowel sounds, tenderness (Described as epigastric spasm), guarding (Epigastrium to palpation), No pulsatile mass, No rebound Pelvic Exam: not done Rectal Exam: not done Back Exam: normal inspection, normal range of motion, No CVA tenderness, No vertebral tenderness Extremity Exam: normal inspection, normal range of motion, pelvis stable Neurologic Exam: alert, oriented x 3, cooperative, hogshead dumper II-XII nml as tested, normal mood/affect, nml cerebellar function, nml station & gait, sensation nml Skin Exam: normal color, warm, dry Lymphatic Exam: No adenopathy SpO2 Interpretation: normal O2 Delivery: Room Air - Course Nursing assessment & vital signs reviewed: Yes EKG Interpreted by Me: RATE (66), Sinus Rhythm, NORMAL AXIS, NORMAL INTERVALS, NORMAL QRS, NORMAL ST-T, Other (No acute ischemic changes on today's twelve-lead EKG) Ordered Tests: Active Orders 24 hr Category Date Time Status EKG-ER Only STAT Care 06/05/23 14:34 Active IV Insertion STAT Care 06/05/23 14:34 Active ABDOMEN AND PELVIS W/0 CONTRAS [CT] Stat Exams 06/05/23 14:35 Completed AMYLASE Stat Lab 06/05/23 14:53 Completed CBC W DIFF Stat Lab 06/05/23 14:53 Completed CMP Stat Lab 06/05/23 14:53 Completed LIPASE Stat Lab 06/05/23 14:53 Completed TROPONIN Q4H Lab 06/05/23 14:53 Completed TROPONIN Q4H Lab 06/05/23 18:45 Ordered TROPONIN Q4H Lab 06/05/23 22:45 Ordered UA W/RFX UR CULTURE Stat Lab 06/05/23 15:03 Completed Lab/Rad Data: Laboratory Result Diagrams 06/05/23 14:53 06/05/23 14:53 Laboratory Results 06/05/23 06/05/23 06/05/23 Range/Units 15:03 14:53 14:53 WBC (4.0-10.5) x10^3/uL RBC (4.1-5.4) x10^6/uL Hgb (12.0-16.0) g/dL Hct (35-47) % MCV (78-100) fL MCH (26-32) pg MCHC (32-36) g/dL RDW (11.5-14.0) % Plt Count (150-450) x10^3/uL MPV (7.5-11.0) fL Gran % (36.0-66.0) % Immature Gran % (Auto) (0.00-0.4) % Nucleat RBC Rel Count (0.00-0.1) % Eos # (Auto) (0-0.5) x10^3/uL Immature Gran # (Auto) (0.00-0.03) x10^3u/L Absolute Lymphs (auto) (1.0-4.6) x10^3/uL Absolute Monos (auto) (0.0-1.3) x10^3/uL Absolute Nucleated RBC (0.00-0.01) x10^3u/L Lymphocytes % (24.0-44.0) % Monocytes % (0.0-12.0) % Eosinophils % (0.00-5.0) % Basophils % (0.0-0.4) % Absolute Granulocytes (1.4-6.9) x10^3/uL Basophils # (0-0.4) x10^3/uL Sodium 139 (137-145) mmol/L Potassium 3.9 (3.5-5.1) mmol/L Chloride 105 (98-107) mmol/L Carbon Dioxide 27 (22-30) mmol/L Anion Gap 10.8 (5-15) MEQ/L BUN 12 (7-17) mg/dL Creatinine 0.77 (0.52-1.04) mg/dL Estimated GFR > 60.0 ML/MIN Glucose 100 (74-106) mg/dL Calcium 8.9 (8.4-10.2) mg/dL Total Bilirubin 0.80 (0.2-1.3) mg/dL AST 24 (14-36) U/L ALT 18 (0-35) U/L Alkaline Phosphatase 70 (38-126) U/L Troponin I < 0.012 (0.000-0.034) ng/mL Serum Total Protein 6.2 L (6.3-8.2) g/dL Albumin 4.0 (3.5-5.0) g/dL Amylase 70 (30-110) U/L Lipase 53 (23-300) U/L Urine Color Yellow (Yellow) Urine Appearance Clear (Clear) Urine pH 5.0 (4.6-8.0) Ur Specific [place] 1.015 (1.005-1.030) Urine Protein Negative (Negative) Urine Glucose (UA) Negative (Negative) mg/dL Urine Ketones Trace A (Negative) Urine Blood Small A (Negative) Urine Nitrite Negative (Negative) Urine Bilirubin Negative (Negative) Urine Urobilinogen 0.2 (0.2) mg/dL Ur Leukocyte Esterase Negative (Negative) U Hyaline Cast (Auto) NONE SEEN (0-2) /LPF Urine Microscopic RBC 3-5 (0-5) /HPF Urine Microscopic WBC 0-2 (0-5) /HPF Ur Epithelial Cells None Seen (None Seen) /HPF Urine Bacteria None Seen (None Seen) /HPF Urine Culture Reflexed NO (NO) 06/05/23 Range/Units 14:53 WBC 4.5 (4.0-10.5) x10^3/uL RBC 4.01 L (4.1-5.4) x10^6/uL Hgb 12.8 (12.0-16.0) g/dL Hct 38.7 (35-47) % MCV 96.5 (78-100) fL MCH 31.9 (26-32) pg MCHC 33.1 (32-36) g/dL RDW 12.2 (11.5-14.0) % Plt Count 189 (150-450) x10^3/uL MPV 8.6 (7.5-11.0) fL Gran % 64.4 (36.0-66.0) % Immature Gran % (Auto) 0.2 (0.00-0.4) % Nucleat RBC Rel Count 0.0 (0.00-0.1) % Eos # (Auto) 0.04 (0-0.5) x10^3/uL Immature Gran # (Auto) 0.01 (0.00-0.03) x10^3u/L Absolute Lymphs (auto) 1.18 (1.0-4.6) x10^3/uL Absolute Monos (auto) 0.33 (0.0-1.3) x10^3/uL Absolute Nucleated RBC 0.00 (0.00-0.01) x10^3u/L Lymphocytes % 26.3 (24.0-44.0) % Monocytes % 7.3 (0.0-12.0) % Eosinophils % 0.9 (0.00-5.0) % Basophils % 0.9 (0.0-0.4) % Absolute Granulocytes 2.89 (1.4-6.9) x10^3/uL Basophils # 0.04 (0-0.4) x10^3/uL Sodium (137-145) mmol/L Potassium (3.5-5.1) mmol/L Chloride (98-107) mmol/L Carbon Dioxide (22-30) mmol/L Anion Gap (5-15) MEQ/L BUN (7-17) mg/dL Creatinine (0.52-1.04) mg/dL Estimated GFR ML/MIN Glucose (74-106) mg/dL Calcium (8.4-10.2) mg/dL Total Bilirubin (0.2-1.3) mg/dL AST (14-36) U/L ALT (0-35) U/L Alkaline Phosphatase (38-126) U/L Troponin I (0.000-0.034) ng/mL Serum Total Protein (6.3-8.2) g/dL Albumin (3.5-5.0) g/dL Amylase (30-110) U/L Lipase (23-300) U/L Urine Color (Yellow) Urine Appearance (Clear) Urine pH (4.6-8.0) Ur Specific [place] (1.005-1.030) Urine Protein (Negative) Urine Glucose (UA) (Negative) mg/dL Urine Ketones (Negative) Urine Blood (Negative) Urine Nitrite (Negative) Urine Bilirubin (Negative) Urine Urobilinogen (0.2) mg/dL Ur Leukocyte Esterase (Negative) U Hyaline Cast (Auto) (0-2) /LPF Urine Microscopic RBC (0-5) /HPF Urine Microscopic WBC (0-5) /HPF Ur Epithelial Cells (None Seen) /HPF Urine Bacteria (None Seen) /HPF Urine Culture Reflexed (NO) - Progress Progress: improved, pain not gone completely, re-examined Progress Note: 06/05/23 16:09 This patient's medical issue is 1 of moderate complexity. The level of complexity in the work-up performed is based on review of the patient's past medical history, review the patient's medication list, review of the patient's drug allergy list, history present illness and physical findings on examination. The work-up in this patient includes placement of intravenous line, twelve- lead EKG, troponin level, CBC, CMP, amylase and lipase level as well as CT scan of the patient's abdomen and pelvis. I reviewed the results of this patient and from the laboratory standpoint there is no acute, emergent abnormality. The urinalysis also is free of infection. The CT scan of the abdomen pelvis was interpreted by the radiologist. There is beam artifact from the left abdominal wall pain pump. There is no acute intra- abdominal or intrapelvic abnormalities. Counseled pt/family regarding: lab results, diagnosis, need for follow-up, rad results Medical Desision Making - External Record(s) Reviewed Records reviewed as a part of evaluation & management: Inpatient - Diagnostic Testing Diagnostic test were ordered, analyzed, and reviewed by me: Yes Radiological Interpretation: Reviewed by me, Teleradiologist Report - Risk of complications Low Risk: Low risk of morbidity from additional dx testing or treatment - Departure Departure Disposition: Home Clinical Impression: Epigastric abdominal pain Condition: Stable Critical Care Time: No Referrals: KATINA VILLAVICENCIO DO [Primary Care Provider] - Follow up/PCP as directed Additional Instructions: Drink plenty of fluids. Avoid fatty greasy spicy foods. Follow-up with your primary care provider for further evaluation and management. Take your medications as prescribed.
[2023-06-05 14:22] VITALS: TEMP 98.3
[2023-06-05 15:03] LABS: Absolute Neutrophil Ct (ANC) 2.89 x10^3/uL (1.4-6.9); BASOPHIL % 0.9 % (0.0-0.4); Basophil (Absolute #) 0.04 x10^3/uL (0-0.4); Eosinophil % 0.9 % (0.00-5.0); Eosinophil (Absolute #) 0.04 x10^3/uL (0-0.5); Hematocrit 38.7 % (35-47); Hemoglobin 12.8 g/dL (12.0-16.0); IMMATURE GRAN # 0.01 x10^3u/L (0.00-0.03); IMMATURE GRAN % 0.2 % (0.00-0.4); Lymphocyte (Absolute #) 1.18 x10^3/uL (1.0-4.6); Lymphocytes % 26.3 % (24.0-44.0); Mean Cell Volume 96.5 fL (78-100); Mean Corpuscular Hemoglobin 31.9 pg (26-32); Mean Corpuscular Hgb Concent. 33.1 g/dL (32-36); Mean Platelet Volume 8.6 fL (7.5-11.0); Monocyte (Absolute #) 0.33 x10^3/uL (0.0-1.3); Monocytes % 7.3 % (0.0-12.0); Neutrophil % 64.4 % (36.0-66.0); Platelet Count 189 x10^3/uL (150-450); Red Blood Count 4.01 x10^6/uL (4.1-5.4); Red Cell Distribution Width 12.2 % (11.5-14.0); White Blood Count 4.5 x10^3/uL (4.0-10.5)
[2023-06-05 15:19] LABS: ALKALINE PHOSPHATASE 70 U/L (38-126); AMYLASE 70 U/L (30-110); ANION GAP 10.8 MEQ/L (5-15); BLOOD UREA NITROGEN 12 mg/dL (7-17); CHLORIDE 105 mmol/L (98-107); Calcium 8.9 mg/dL (8.4-10.2); Carbon Dioxide 27 mmol/L (22-30); Creatinine 1 0.77 mg/dL (0.52-1.04); EST GLOMERULAR FILTRATION RATE > 60.0 ML/MIN; Glucose 100 mg/dL (74-106); LIPASE 53 U/L (23-300); Potassium 3.9 mmol/L (3.5-5.1); SGOT/AST 24 U/L (14-36); SGPT/ALT 18 U/L (0-35); SODIUM 139 mmol/L (137-145); Total Protein 6.2 g/dL (6.3-8.2)
[2023-06-05 15:21] VITALS: BP 145/96; PULSE 64; O2SAT 98
[2023-06-05 15:21] LABS: Appearance Clear (Clear); Bacteria None Seen /HPF (None Seen); Bilirubin Negative (Negative); Blood Small (Negative); Epithelial Cells None Seen /HPF (None Seen); Glucose, Urine Negative (Negative); Hyaline Casts NONE SEEN /LPF (0-2); Ketones Trace (Negative); Leukocyte Esterase Negative (Negative); Nitrite Negative (Negative); Protein,Urine Dip Negative (Negative); Specific Gravity 1.015 (1.005-1.030); Urobilinogen 0.2 mg/dL (0.2); WBC 0-2 /HPF (0-5)
[2023-06-05 15:22] LABS: ADD URINE CULTURE? NO (NO)
--- NOTE | 2023-06-05 15:44 | XRAY ---
Indication: Right abdomen pain. Multiple contiguous axial images obtained through the abdomen and pelvis without contrast. Comparison: May 11, 2022 Lung bases clear. Heart not enlarged. Again left mid abdominal wall pain pump produces beam artifact. Noncontrasted stomach and bowel loops appear nonobstructed. Minimal sigmoid diverticulosis without diverticulitis. Again tiny hepatic/splenic calcified granulomas, hysterectomy, appendectomy, and cholecystectomy. No free fluid/air. Remaining liver, pancreas, spleen, adrenal glands, kidneys, ureters, bladder, and aorta are unremarkable for noncontrast exam. Osseous structures intact again with minimal degenerative changes throughout the spine and T11-T12 laminectomy. Impression: 1. Again beam artifact from left abdominal pain pump. 2. Minimal sigmoid diverticulosis, chronic bony findings, and old granulomatous disease. 3. Remaining CT abdomen/pelvis without contrast exam continues to be negative.
== END 2023-06-05 16:24 | disposition home or self-care (01) ==
LOC: ED 14:03
DX: R10.13 Epigastric pain (principal); E78.5 Hyperlipidemia, unspecified; I10 Essential (primary) hypertension; Z79.01 Long term (current) use of anticoagulants; Z79.891 Long term (current) use of opiate analgesic; Z79.899 Other long term (current) drug therapy
CPT/HCPCS: 36000; 36415; 74176; 80053; 81001; 82150; 83690; 84484; 85025; 93005; 99284

== ENCOUNTER 2023-07-20 03:42 | Emergency (ER) | payer MEDICARE ==
[2023-07-20 03:54] VITALS: RESP 18; TEMP 97.9
[2023-07-20 04:28] LABS: Appearance Cloudy (Clear); Bacteria None Seen /HPF (None Seen); Bilirubin Negative (Negative); Blood Small (Negative); Epithelial Cells None Seen /HPF (None Seen); Glucose, Urine Negative (Negative); Hyaline Casts NONE SEEN /LPF (0-2); Ketones Negative (Negative); Leukocyte Esterase Negative (Negative); Nitrite Negative (Negative); Protein,Urine Dip Negative (Negative); Specific Gravity 1.015 (1.005-1.030); Urobilinogen 0.2 mg/dL (0.2); WBC 0-2 /HPF (0-5)
--- NOTE | 2023-07-20 04:33 | ERPHSYRPT ---
- History of Present Illness Time Seen by Provider: 07/20/23 04:20 Source: patient Exam Limitations: no limitations Patient Subjective Stated Complaint: Leg pain, jumping legs, burning at coccyx area and perineum, and frequent urination. Triage Nursing Assessment: pt ambulated into ER without diff, spouse at bedside. Pt c/o bilat leg pain, burning pain to coccyx pain, perineal pain and down the legs. Pt states, "I have sciatica and MS and my legs have been jumping tonight and the pain has gotten worse. I have been urinating frequently and having urgency". Pt is to have an upcoming MRI of cervical, thoracic and lumbar at [facility]. Pt has a pain pump in place and also sees Dr. Apple. Physician History: This is a 68-year-old white female patient of Dr. Sanon and pain specialist Dr. Apple who presents with bilateral leg pain described as burning and spasming/jumping as well as a localized burning sensation just to the right of her coccyx in the buttock region and perineal region. Patient has a Dilaudid pain pump in place. She did not suffer any acute trauma or fall. Patient has multiple sclerosis and a history of sciatica. She has an MRI scheduled sometime next week of her cervical spine, thoracic spine and lumbar spine at [facility]. Patient has multiple medical issues including hypothyroidism, hyperlipidemia, gastroesophageal reflux disease, hypertension and atrial fibril lation (on Xarelto and diltiazem). She is also taking Valium and baclofen. Patient states that she is allergic to NSAIDs. She states she can take steroids orally (low-dose only) and injectable steroids of any strength. Patient states that she cannot take Lyrica because of the multiple side effects. She also states she cannot take amitriptyline because of its side effects. She also has frequent urination. Method of Injury: other (No injury) Occurred: days ago (Last couple of days and worse this morning) Quality: intermittent (Burning sensation) Severity of Pain-Max: moderate Severity of Pain-Current: moderate Modifying Factors: Improves With: nothing Associated Symptoms: none Allergies/Adverse Reactions: levofloxacin [From Levaquin] Allergy (Mild, Verified 07/20/23 04:08) tendonitis Penicillins Allergy (Unknown, Verified 07/20/23 04:08) Rash chromium Allergy (Verified 07/20/23 04:08) Rash formaldehyde Allergy (Verified 07/20/23 04:08) Rash epinephrine Adverse Reaction (Unknown, Verified 07/20/23 04:08) pt states it increases her heart rate and makes her feel stoned morphine Adverse Reaction (Unknown, Verified 07/20/23 04:08) hallucnations NSAIDS (Non-Steroidal Anti-Inflamma Adverse Reaction (Unknown, Verified 07/20/23 04:08) stomach ulcers nalbuphine HCl [From Nubain] Adverse Reaction (Verified 07/20/23 04:08) hallucunations steroids Adverse Reaction (Unknown, Uncoded 07/20/23 04:08) pt states they makes her flush feel hot and increases her blood pressure with po steriods along with stomach cramps ....its more of a sensitivity. Home Medications: Baclofen 10 mg [Lioresal 10 mg] 20 mg PO QID 04/08/12 [History] estradioL [Estradiol] 0.5 mg PO DAILY 04/08/12 [History] PANTOPRAZOLE 40 mg Tablet [Protonix 40MG Tablet] 40 mg PO BID 01/24/16 [History] Levothyroxine Sodium 50 Mcg [Synthroid 50 Mcg] 50 mcg PO 0600 06/13/16 [History] Atorvastatin Calcium [Lipitor 20MG Tablet] 20 mg PO 1800 01/20/21 [History] Promethazine HCl 25 mg [Phenergan 25 mg] 25 mg PO Q6H PRN PRN 01/20/21 [History] Rivaroxaban 10 mg Tablet [Xarelto 10 mg Tablet] 20 mg PO DAILY 01/20/21 [History] Diazepam 5 mg [Valium 5 MG] 5 mg PO DAILY PRN PRN 01/30/21 [History] Colestipol HCl [Colestid] 1 gm PO DAILY 10/03/21 [History] Cyclosporine [Restasis Multidose] 1 drop OP BID 02/12/23 [History] Diltiazem HCl 30 mg [Cardizem 30 MG] 30 mg PO BID 02/12/23 [History] Ferrous Sulfate [Iron] 325 mg PO DAILY 02/12/23 [History] Hydromorphone HCl [Dilaudid] 0 mg PO DAILY 02/12/23 [History] hydrOXYzine HCL [Hydroxyzine HCl] 10 - 20 mg PO HSPRN PRN 02/12/23 [History] Hx Tetanus, Diphtheria Vaccination/Date Given: Yes Hx Influenza Vaccination/Date Given: No Hx Pneumococcal Vaccination/Date Given: No Immunizations Up to Date: No Travel Risk - International Travel Have you traveled outside of the country in past 3 weeks: No - Coronavirus Screening Are you exhibiting any of the following symptoms?: No Close contact with a COVID-19 positive Pt in past 14-21 Days: No - Vaccine Status Have you recieved a Covid-19 vaccination: Yes [employer]: Moderna - Vaccination Dates Date of 2cond Vaccination (if applicable): 01/04/21 - Review of Systems Constitutional: No Symptoms Eyes: No Symptoms Ears, Nose, & Throat: No Symptoms Respiratory: No Symptoms Cardiac: No Symptoms Abdominal/Gastrointestinal: No Symptoms Genitourinary Symptoms: No Symptoms Musculoskeletal: Other (Bilateral lower extremity burning pain) Skin: Other (Localized burning area to the right of the patient's coccyx and onto the right buttock and perineal region) Neurological: Sensory Changes Psychological: No Symptoms Endocrine: No Symptoms (See above) Hematologic/Lymphatic: No Symptoms Immunological/Allergic: No Symptoms All Other Systems: Reviewed and Negative - Past Medical History Pertinent Past Medical History: Yes Neurological History: Other ENT History: Other Cardiac History: Arrhythmia, High Cholesterol, Hypertension Respiratory History: Other Endocrine Medical History: Hypothyroidism, Other Musculoskeletal History: Osteoarthritis, Other GI Medical History: GERD, Gallbladder Disease History: Other Psycho-Social History: No Pertinent History Female Reproductive Disorders: Cervical Cancer Other Medical History: PATIENT HAD LYMPHOMA - IN REMISSION WITH REGULAR BLOOD WORK. ALSO HX OF CERVICAL CANCER WITH OOPHORECTOMY AND HYSTERECTOMY. 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 HX OF 3 SURGERIES ON LEFT ANKLE FOR TENDON ISSUES. HAD INJECTION LEFT HIP IN NOVEMBER FOR BURSITIS. multiple scorolsis. 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 - Past Surgical History Past Surgical History: Yes Neuro Surgical History: Other Cardiac: Cardiac Catheterization Respiratory: No Pertinent History Gastrointestinal: Appendectomy, Cholecystectomy Genitourinary: Kidney Surgery Musculoskeletal: Orthopedic Surgery, Other Female Surgical History: Hysterectomy, Other Other Surgical History: odilia oopherectomy, t-11 and t12 laminectiomy, stents in kidney, PAIN PUMP - Social History Smoking Status: Former smoker How long have you smoked: 5 years Exposure to second hand smoke: No Drug Use: none Patient Lives Alone: No - Nursing Vital Signs Nursing Vital Signs: Initial Vital Signs Temperature 97.9 F 07/20/23 03:53 Pulse Rate 111 H 07/20/23 03:53 Respiratory Rate 18 07/20/23 03:53 Blood Pressure 178/80 07/20/23 03:53 O2 Sat by Pulse Oximetry 98 07/20/23 03:53 Pain Scale Pain Intensity 7 - Physical Exam General Appearance: mild distress, alert, anxiety Eyes, Ears, Nose, Throat Exam: normal ENT inspection, moist mucous membranes Neck Exam: normal inspection, non-tender, supple, full range of motion Cardiovascular/Respiratory Exam: chest non-tender, no respiratory distress Gastrointestinal/Abdominal Exam: non-tender, soft, no organomegaly, no hernia, No guarding, No tenderness Back Exam: normal inspection, normal range of motion, No CVA tenderness, No vertebral tenderness Hips Exam: bilateral: non-tender, normal inspection, normal range of motion Legs Exam: bilateral leg: normal inspection, normal range of motion, no evidence of injury, other (Burning sensation circumferentially around both upper legs and down lower legs) Ankle Exam: bilateral ankle: non-tender, normal inspection, normal range of motion, no evidence of injury Foot Exam: bilateral foot: non-tender, normal inspection, normal range of motion, no evidence of injury Neuro/Tendon Exam: normal motor functions, normal tendon functions, responds to pain, no evidence tendon injury Mental Status Exam: alert, oriented x 3, cooperative Skin Exam: normal color, warm, dry, other (Hypersensitivity/burning to the above-stated areas on her body) SpO2 Interpretation: normal SpO2: 98 O2 Delivery: Room Air - Course Nursing assessment & vital signs reviewed: Yes Ordered Tests: Active Orders 24 hr Category Date Time Status UA W/RFX UR CULTURE Stat Lab 07/20/23 04:17 Completed Medication Summary Discontinued Medications Generic Name Dose Route Start Last Admin Trade Name Freq PRN Reason Stop Dose Admin Methylprednisolone Sodium 0 mg 07/20/23 05:00 07/20/23 05:14 Succinate 125 mg/ Sterile IM 07/20/23 05:01 125 mg Water 2 ml STAT ONE Administration Hydromorphone HCl 1 mg 07/20/23 05:00 07/20/23 05:13 Hydromorphone 1 Mg/1ml Inj IM 07/20/23 05:01 1 mg STAT ONE Administration Hydromorphone HCl Confirm 07/20/23 05:04 Hydromorphone 1 Mg/1ml Inj Administered 07/20/23 05:05 Dose 1 mg .ROUTE .STK-MED ONE Methylprednisolone Sodium Succinate Confirm 07/20/23 05:04 Methylprednis Sod Succ 125 Mg/2 Ml Vial Administered 07/20/23 05:05 Dose 125 mg .ROUTE .STK-MED ONE Ondansetron HCl 4 mg 07/20/23 05:01 07/20/23 05:05 Zofran 4 Mg/Udtablet Orally Disintegrating PO 07/20/23 05:02 4 mg STAT ONE Administration Ondansetron HCl Confirm 07/20/23 05:04 Zofran 4 Mg/Udtablet Orally Disintegrating Administered 07/20/23 05:05 Dose 4 mg .ROUTE .STK-MED ONE Sterile Water Confirm 07/20/23 05:04 Water For Injection,Sterile 10 Ml Vial Administered 07/20/23 05:05 Dose 10 ml IJ .STK-MED ONE Lab/Rad Data: Laboratory Results 07/20/23 Range/Units 04:17 Urine Color Yellow (Yellow) Urine Appearance Cloudy A (Clear) Urine pH 6.0 (4.6-8.0) Ur Specific [place] 1.015 (1.005-1.030) Urine Protein Negative (Negative) Urine Glucose (UA) Negative (Negative) mg/dL Urine Ketones Negative (Negative) Urine Blood Small A (Negative) Urine Nitrite Negative (Negative) Urine Bilirubin Negative (Negative) Urine Urobilinogen 0.2 (0.2) mg/dL Ur Leukocyte Esterase Negative (Negative) U Hyaline Cast (Auto) NONE SEEN (0-2) /LPF Urine Microscopic RBC 6-10 A (0-5) /HPF Urine Microscopic WBC 0-2 (0-5) /HPF Ur Epithelial Cells None Seen (None Seen) /HPF Calcium Oxalate Crystal 0-2 A (None Seen) /HPF Urine Bacteria None Seen (None Seen) /HPF Urine Culture Reflexed NO (NO) - Progress Progress: improved, pain not gone completely Progress Note: 07/20/23 05:25 This patient's medical issue is 1 of low to moderate complexity. Level comp lexity in the work-up performed is based on review of the patient's past medical history, review of the patient's medication list, review the patient's drug allergy list, history of present illness and physical findings on examination. We ordered a urinalysis. I interpreted this urinalysis. Patient does not have a urinary tract infection. This patient does not have acute trauma to her back, buttock or bilateral lower extremities. She does not have evidence of skin infection. She does not have evidence of lack of blood flow to her feet. She has bounding pedal pulses. Patient is on Eliquis and is unlikely to have a DVT. Most likely, she has an exacerbation of her multiple sclerosis. I reviewed with the patient extensively her medication list and drug allergy list. In addition to providing her with a bolus of Dilaudid 1 mg intramuscularly, we provide the patient with 125 mg Solu-Medrol intramuscularly, Zofran 4 mg ODT and together, we decided on adding lamotrigine 25 mg orally 1 time to see if that helps her. The patient and I reviewed the side effects and contraindications to using lamotrigine. Together, we decided that she will try a single dose. I will reassess her shortly, prior to discharge to home. I might provide her with another dose of 1 mg Dilaudid. I will also discuss with her what she wants to do in terms of steroid use orally at home. She definitely will need to call her neurologist for further evaluation and management. 07/20/23 05:30 07/20/23 05:34 Our hospital only carries 100 mg lamotrigine dosing. Therefore, I will send 2 doses of the immediate acting lamotrigine to the patient's pharmacy. She will take 1 dose this morning and 1 dose on the morning of 07/21/2023. 07/20/23 05:54 For discharge medications, what we agreed on together is a Medrol Dosepak and the lamotrigine medication as discussed above. I reexamined her just before discharge and her symptoms are improving. We will provide her with an additional 0.5 mg Dilaudid intramuscularly before discharge. Counseled pt/family regarding: diagnosis, need for follow-up Medical Desision Making - Independent Historian Additional History obtained from: Spouse - Diagnostic Testing Diagnostic test were ordered, analyzed, and reviewed by me: Yes - Risk of complications The pt has a mod risk of morbidity or mortality based on: Need for prescription drug management - Departure Departure Disposition: Home Clinical Impression: Bilateral radiating leg pain, Multiple sclerosis exacerbation, Neuropathy Condition: Stable Critical Care Time: No Referrals: RASHAD SANON DO [Primary Care Provider] - Follow up/PCP as directed Additional Instructions: Call your neurologist today, 07/20/2023, to obtain further management/recommendations and to secure a follow-up appointment as an outpatient. Continue your other medication as prescribed. Prescriptions: lamoTRIgine [Lamictal] 25 mg PO QAM #2 tablet Methylprednisolone Packet [Medrol Dosepack] 4 mg PO UD #1 packet
[2023-07-20 04:36] LABS: ADD URINE CULTURE? NO (NO); Calcium Oxalate Crystals 0-2 /HPF (None Seen)
[2023-07-20] MEDS ORDERED: solu-MEDROL 125 MG, Sterile H2O 10 ml 2 ML IM ONE ×2 (05:00)
[2023-07-20] MEDS ORDERED: Hydromorphone 1 mg/ml Injection IM ONE ×2 (05:00→05:53)
[2023-07-20] MEDS ORDERED: ZOFRAN ODT 4 MG PO ONE (05:01)
[2023-07-20] MEDS ORDERED: Sterile H2O 10 ml IJ ONE (05:04)
[2023-07-20] MEDS ORDERED: solu-MEDROL ONE (05:04)
[2023-07-20] MEDS ORDERED: ZOFRAN ODT 4 MG ONE (05:04)
[2023-07-20] MEDS ORDERED: Hydromorphone 1 mg/ml Injection ONE ×2 (05:04→06:12)
[2023-07-20] MEDS ORDERED: VALIUM 10 MG/2 ML SYRINGE IV ONE (06:38)
[2023-07-20] MEDS ORDERED: VALIUM 10 MG/2 ML SYRINGE ONE (06:50)
[2023-07-20 06:59] LABS: Absolute Neutrophil Ct (ANC) 8.82 x10^3/uL (1.4-6.9); BASOPHIL % 0.3 % (0.0-0.4); Basophil (Absolute #) 0.03 x10^3/uL (0-0.4); Eosinophil % 0.1 % (0.00-5.0); Eosinophil (Absolute #) 0.01 x10^3/uL (0-0.5); Hematocrit 41.4 % (35-47); IMMATURE GRAN # 0.04 x10^3u/L (0.00-0.03); IMMATURE GRAN % 0.4 % (0.00-0.4); Lymphocyte (Absolute #) 1.49 x10^3/uL (1.0-4.6); Lymphocytes % 13.9 % (24.0-44.0); Mean Cell Volume 94.5 fL (78-100); Mean Corpuscular Hgb Concent. 33.8 g/dL (32-36); Mean Platelet Volume 8.9 fL (7.5-11.0); Monocyte (Absolute #) 0.36 x10^3/uL (0.0-1.3); Monocytes % 3.3 % (0.0-12.0); Platelet Count 207 x10^3/uL (150-450); Red Blood Count 4.38 x10^6/uL (4.1-5.4); Red Cell Distribution Width 12.6 % (11.5-14.0); White Blood Count 10.8 x10^3/uL (4.0-10.5)
[2023-07-20 07:34] LABS: ALBUMIN 4.7 g/dL (3.5-5.0); ALKALINE PHOSPHATASE 94 U/L (38-126); BLOOD UREA NITROGEN 14 mg/dL (7-17); CHLORIDE 108 mmol/L (98-107); Calcium 9.6 mg/dL (8.4-10.2); Carbon Dioxide 26 mmol/L (22-30); Creatinine 1 0.77 mg/dL (0.52-1.04); EST GLOMERULAR FILTRATION RATE > 60.0 ML/MIN; Glucose 127 mg/dL (74-106); Potassium 3.5 mmol/L (3.5-5.1); SGOT/AST 41 U/L (14-36); SGPT/ALT 22 U/L (0-35); SODIUM 142 mmol/L (137-145); Total Protein 7.2 g/dL (6.3-8.2)
[2023-07-20 07:53] VITALS: BP 179/77; PULSE 85; O2SAT 96
== END 2023-07-20 07:58 | disposition home or self-care (01) ==
LOC: ED 03:42
DX: M79.604 Pain in right leg (principal); M79.605 Pain in left leg; G35 Multiple sclerosis; G62.9 Polyneuropathy, unspecified; R07.9 Chest pain, unspecified; E78.5 Hyperlipidemia, unspecified; I10 Essential (primary) hypertension; R35.0 Frequency of micturition; Z79.01 Long term (current) use of anticoagulants; Z79.891 Long term (current) use of opiate analgesic; Z79.899 Other long term (current) drug therapy
CPT/HCPCS: 36000; 36415; 80053; 81001; 84484; 85025; 93005; 96372; 96374; 99284; J1170; J2930; J3360; Q0162

== ENCOUNTER 2023-07-24 15:27 | Emergency (ER) | payer MEDICARE ==
--- NOTE | 2023-07-24 15:30 | ERPHSYRPT ---
- History of Present Illness Time Seen by Provider: 07/24/23 15:30 Source: patient Exam Limitations: no limitations Physician History: This is a 68-year-old white female patient of Dr. Drake, the arbitrator who sent the patient over to our hospital emergency department secondary to the patient having a potassium level of 3.0. Patient does have a history of atrial fibrillation chronically. Patient is not having any chest pain. She is not having shortness of breath. Her labs were performed on 07/24/2023 at 943 in the morning. Her magnesium is 2.1. Her renal function is normal. I will not repeat the labs. We will provide the patient with 1K rider intravenously and 20 mill equivalents of potassium orally. Patient denies vomiting and she denies diarrhea. Timing/Duration: today Severity: mild Associated Symptoms: denies symptoms Allergies/Adverse Reactions: levofloxacin [From Levaquin] Allergy (Mild, Verified 07/20/23 04:08) tendonitis Penicillins Allergy (Unknown, Verified 07/20/23 04:08) Rash chromium Allergy (Verified 07/20/23 04:08) Rash formaldehyde Allergy (Verified 07/20/23 04:08) Rash epinephrine Adverse Reaction (Unknown, Verified 07/20/23 04:08) pt states it increases her heart rate and makes her feel stoned morphine Adverse Reaction (Unknown, Verified 07/20/23 04:08) hallucnations NSAIDS (Non-Steroidal Anti-Inflamma Adverse Reaction (Unknown, Verified 07/20/23 04:08) stomach ulcers nalbuphine HCl [From Nubain] Adverse Reaction (Verified 07/20/23 04:08) hallucunations steroids Adverse Reaction (Unknown, Uncoded 07/20/23 04:08) pt states they makes her flush feel hot and increases her blood pressure with po steriods along with stomach cramps ....its more of a sensitivity. Home Medications: Baclofen 10 mg [Lioresal 10 mg] 20 mg PO QID 04/08/12 [History] estradioL [Estradiol] 0.5 mg PO DAILY 04/08/12 [History] PANTOPRAZOLE 40 mg Tablet [Protonix 40MG Tablet] 40 mg PO BID 01/24/16 [History] Levothyroxine Sodium 50 Mcg [Synthroid 50 Mcg] 50 mcg PO 0600 06/13/16 [History] Atorvastatin Calcium [Lipitor 20MG Tablet] 20 mg PO 1800 01/20/21 [History] Promethazine HCl 25 mg [Phenergan 25 mg] 25 mg PO Q6H PRN PRN 01/20/21 [History] Rivaroxaban 10 mg Tablet [Xarelto 10 mg Tablet] 20 mg PO DAILY 01/20/21 [History] Diazepam 5 mg [Valium 5 MG] 5 mg PO DAILY PRN PRN 01/30/21 [History] Colestipol HCl [Colestid] 1 gm PO DAILY 10/03/21 [History] Cyclosporine [Restasis Multidose] 1 drop OP BID 02/12/23 [History] Diltiazem HCl 30 mg [Cardizem 30 MG] 30 mg PO BID 02/12/23 [History] Ferrous Sulfate [Iron] 325 mg PO DAILY 02/12/23 [History] Hydromorphone HCl [Dilaudid] 0 mg PO DAILY 02/12/23 [History] hydrOXYzine HCL [Hydroxyzine HCl] 10 - 20 mg PO HSPRN PRN 02/12/23 [History] Hx Tetanus, Diphtheria Vaccination/Date Given: Yes Hx Influenza Vaccination/Date Given: No Hx Pneumococcal Vaccination/Date Given: No Travel Risk - International Travel Have you traveled outside of the country in past 3 weeks: No - Coronavirus Screening Are you exhibiting any of the following symptoms?: No Close contact with a COVID-19 positive Pt in past 14-21 Days: No - Vaccine Status Have you recieved a Covid-19 vaccination: Yes [employer]: Moderna - Vaccination Dates Date of 2cond Vaccination (if applicable): 01/04/21 - Review of Systems Constitutional: No Symptoms Eyes: No Symptoms Ears, Nose, & Throat: No Symptoms Respiratory: No Symptoms Cardiac: No Symptoms Abdominal/Gastrointestinal: No Symptoms Genitourinary Symptoms: No Symptoms Musculoskeletal: No Symptoms Skin: No Symptoms Neurological: No Symptoms Psychological: No Symptoms Endocrine: No Symptoms Hematologic/Lymphatic: No Symptoms Immunological/Allergic: No Symptoms All Other Systems: Reviewed and Negative - Past Medical History Pertinent Past Medical History: Yes Neurological History: Other ENT History: Other Cardiac History: Arrhythmia, High Cholesterol, Hypertension Respiratory History: Other Endocrine Medical History: Hypothyroidism, Other Musculoskeletal History: Osteoarthritis, Other GI Medical History: GERD, Gallbladder Disease History: Other Psycho-Social History: No Pertinent History Female Reproductive Disorders: Cervical Cancer Other Medical History: PATIENT HAD LYMPHOMA - IN REMISSION WITH REGULAR BLOOD WORK. ALSO HX OF CERVICAL CANCER WITH OOPHORECTOMY AND HYSTERECTOMY. 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 HX OF 3 SURGERIES ON LEFT ANKLE FOR TENDON ISSUES. HAD INJECTION LEFT HIP IN NOVEMBER FOR BURSITIS. multiple scorolsis. 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 - Past Surgical History Past Surgical History: Yes Neuro Surgical History: Other Cardiac: Cardiac Catheterization Respiratory: No Pertinent History Gastrointestinal: Appendectomy, Cholecystectomy Genitourinary: Kidney Surgery Musculoskeletal: Orthopedic Surgery, Other Female Surgical History: Hysterectomy, Other Other Surgical History: odilia oopherectomy, t-11 and t12 laminectiomy, stents in kidney, PAIN PUMP - Social History Smoking Status: Former smoker How long have you smoked: 5 years Exposure to second hand smoke: No Drug Use: none Patient Lives Alone: No - Nursing Vital Signs Nursing Vital Signs: Initial Vital Signs Temperature 97.8 F 07/24/23 15:35 Pulse Rate 74 07/24/23 15:35 Respiratory Rate 20 07/24/23 15:35 Blood Pressure 200/76 07/24/23 15:35 O2 Sat by Pulse Oximetry 97 07/24/23 15:35 Pain Scale Pain Intensity 0 - Physical Exam General Appearance: no apparent distress, alert, anxiety Eye Exam: PERRL/EOMI, eyes nml inspection Ears, Nose, Throat Exam: normal ENT inspection, moist mucous membranes Neck Exam: normal inspection, non-tender, supple, full range of motion Respiratory Exam: normal breath sounds, lungs clear, airway intact, No chest tenderness, No respiratory distress Cardiovascular Exam: regular rate/rhythm, normal heart sounds, normal peripheral pulses Gastrointestinal/Abdomen Exam: soft, normal bowel sounds, No tenderness Pelvic Exam: not done Rectal Exam: not done Back Exam: normal inspection, normal range of motion, No CVA tenderness, No vertebral tenderness Extremity Exam: normal inspection, normal range of motion, pelvis stable Neurologic Exam: alert, oriented x 3, cooperative, 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 tested, normal mood/affect, nml cerebellar function, nml station & gait, sensation nml Skin Exam: normal color, warm, dry Lymphatic Exam: No adenopathy SpO2 Interpretation: normal O2 Delivery: Room Air - Course Nursing assessment & vital signs reviewed: Yes Ordered Tests: Active Orders 24 hr Category Date Time Status IV Insertion STAT Care 07/24/23 15:30 Active Telemetry q4h Care 07/24/23 15:31 Active Medication Summary Generic Name Dose Route Start Last Admin Trade Name Freq PRN Reason Stop Dose Admin Potassium Chloride 20 meq in 100 mls @ 50 mls/hr 07/24/23 15:31 07/24/23 15:41 Potassium Chloride 20 Meq In Water 100ml IV 07/24/23 17:30 50 mls/hr STAT ONE Administration Sodium Chloride 1,000 mls @ 100 mls/hr 07/24/23 16:00 07/24/23 15:55 Sodium Chloride 0.9% 1000 Ml IV 08/23/23 15:59 100 mls/hr .Q10H KRISTIE Administration Discontinued Medications Generic Name Dose Route Start Last Admin Trade Name Freq PRN Reason Stop Dose Admin Potassium Chloride Confirm 07/24/23 15:40 Potassium Chloride 20 Meq In Water 100ml Administered 07/24/23 15:41 Dose 100 mls @ ud IV .STK-MED ONE Sodium Chloride Confirm 07/24/23 15:51 Sodium Chloride 0.9% 1000 Ml Administered 07/24/23 15:52 Dose 1,000 mls @ ud .ROUTE .STK-MED ONE Lorazepam 1 mg 07/24/23 16:25 07/24/23 16:28 Lorazepam 2 Mg/1 Ml 2 Mg Vial IV 07/24/23 16:26 1 mg STAT ONE Administration Lorazepam Confirm 07/24/23 16:27 Lorazepam 2 Mg/1 Ml 2 Mg Vial Administered 07/24/23 16:28 Dose 2 mg .ROUTE .STK-MED ONE Potassium Chloride 20 meq 07/24/23 15:31 07/24/23 15:41 Potassium Chloride Tab 10 Meq Tab PO 07/24/23 15:32 20 meq STAT ONE Administration Potassium Chloride Confirm 07/24/23 15:39 Potassium Chloride Tab 10 Meq Tab Administered 07/24/23 15:40 Dose 20 meq PO .STK-MED ONE - Progress Progress: unchanged Progress Note: 07/24/23 16:16 This patient's medical issue is 1 of low complexity. The level complexity in the work-up performed based on review of the patient's past medical history, medication list, drug allergy list, presenting complaint and history of present illness as well as physical findings on examination. The work-up in this patient will be placement of intravenous line. We will not draw any labs at this time. Blood work was done today approximately 5 to 6 hours ago. Her potassium level is not too terribly low. We will provide her with one 20 mEq K rider intravenously and one 20 mill equivalent potassium chloride tablet. We will then send a prescription to her pharmacy to take 10 mEq of potassium twice a day for 2 days. We will have her return to the lab at the hospital to have a potassium level drawn on 07/26/2020 3 in the morning and send the results to her arbitrator Counseled pt/family regarding: lab results, diagnosis, need for follow-up Medical Desision Making - Independent Historian Additional History obtained from: Spouse - Diagnostic Testing Diagnostic test were ordered, analyzed, and reviewed by me: Yes - Risk of complications The pt has a mod risk of morbidity or mortality based on: Need for prescription drug management - Departure Departure Disposition: Home Clinical Impression: Hypokalemia Condition: Stable Critical Care Time: No Referrals: RASHAD SANON DO [Primary Care Provider] - Follow up/PCP as directed Additional Instructions: Take your medication as prescribed. Return to the laboratory at [facility] on the morning of 07/26/2023 to have repeat blood drawn. Follow-up with your arbitrator later in the morning on 07/26/2023 to obtain the results of your lab work. Prescriptions: Potassium Chloride Tab* [Klor Con] 10 meq PO BID #4 tab
[2023-07-24] MEDS ORDERED: POTASSIUM CHLORIDE 20 mEq IN WATER 100ML 20 MEQ/100 ML BAG IV ONE (15:31)
[2023-07-24] MEDS ORDERED: Klor Con PO ONE ×2 (15:31→15:39)
[2023-07-24 15:38] VITALS: TEMP 97.8
[2023-07-24] MEDS ORDERED: POTASSIUM CHLORIDE 20 mEq IN WATER 100ML 100 ML IV ONE (15:40)
[2023-07-24] MEDS ORDERED: Sodium Chloride 0.9% 1000 ML 1,000 ML ONE (15:51)
[2023-07-24] MEDS ORDERED: Sodium Chloride 0.9% 1000 ML 1,000 ML IV SCH (16:00)
[2023-07-24] MEDS ORDERED: Ativan 2 MG/1 ML VIAL IV ONE (16:25)
[2023-07-24] MEDS ORDERED: Ativan 2 MG/1 ML VIAL ONE (16:27)
[2023-07-24 18:19] VITALS: BP 182/77; PULSE 68; RESP 18; O2SAT 96
== END 2023-07-24 18:22 | disposition home or self-care (01) ==
LOC: ED 15:27
DX: E87.6 Hypokalemia (principal); E78.5 Hyperlipidemia, unspecified; I10 Essential (primary) hypertension; Z79.01 Long term (current) use of anticoagulants; Z79.891 Long term (current) use of opiate analgesic; Z79.899 Other long term (current) drug therapy
CPT/HCPCS: 36000; 96374; 96375; 99284; J2060; J3480; A9270-GY

== ENCOUNTER 2023-08-19 20:28 | Emergency (ER) | payer MEDICARE ==
--- NOTE | 2023-08-19 20:47 | ERPHSYRPT ---
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 She is concerned that she has an MS "flareup". Patient states the symptoms started yesterday. She has generalized pain and feels hot and cold. This is typical for her multiple sclerosis flareups. At approximately 1900 prior to arrival, she took half a tablet of her Valium and a single tablet of 5/325 Percocet. Patient also is concerned that she may have a upper respiratory infection/bronchitis. Patient told the nurse but she did not tell me that she took 2 separate COVID test on an outpatient basis and both were negative. Patient wants hospital COVID test. Patient has multiple other medical issues including arrhythmia, hypertension, hyperlipidemia, hypothyroidism and gastroesophageal reflux disease Timing/Duration: yesterday Severity: mild Associated Symptoms: other (Muscle aches and pains), No shortness of breath, No cough Allergies/Adverse Reactions: levofloxacin [From Levaquin] Allergy (Mild, Verified 08/19/23 20:49) tendonitis Penicillins Allergy (Unknown, Verified 08/19/23 20:49) Rash chromium Allergy (Verified 08/19/23 20:49) Rash formaldehyde Allergy (Verified 08/19/23 20:49) Rash epinephrine Adverse Reaction (Unknown, Verified 08/19/23 20:49) pt states it increases her heart rate and makes her feel stoned morphine Adverse Reaction (Unknown, Verified 08/19/23 20:49) hallucnations NSAIDS (Non-Steroidal Anti-Inflamma Adverse Reaction (Unknown, Verified 08/19/23 20:49) stomach ulcers nalbuphine HCl [From Nubain] Adverse Reaction (Verified 08/19/23 20:49) hallucunations steroids Adverse Reaction (Unknown, Uncoded 08/19/23 20:49) pt states they makes her flush feel hot and increases her blood pressure with po steriods along with stomach cramps ....its more of a sensitivity. Home Medications: Baclofen 10 mg [Lioresal 10 mg] 40 mg PO QID 04/08/12 [History] estradioL [Estradiol] 0.5 mg PO DAILY 07/10/12 [History] PANTOPRAZOLE 40 mg Tablet [Protonix 40MG Tablet] 40 mg PO BID 01/24/16 [History] Atorvastatin Calcium [Lipitor 20MG Tablet] 20 mg PO 1800 01/20/21 [History] Promethazine HCl 25 mg [Phenergan 25 mg] 25 mg PO Q6H PRN PRN 01/20/21 [History] Rivaroxaban 10 mg Tablet [Xarelto 10 mg Tablet] 20 mg PO DAILY 01/20/21 [History] Diazepam 5 mg [Valium 5 MG] 5 mg PO DAILY PRN PRN 01/30/21 [History] Colestipol HCl [Colestid] 1 gm PO DAILY 10/03/21 [History] Cyclosporine [Restasis Multidose] 1 drop OP BID 02/12/23 [History] Diltiazem HCl 30 mg [Cardizem 30 MG] 30 mg PO BID 02/12/23 [History] Ferrous Sulfate [Iron] 325 mg PO DAILY 02/12/23 [History] Hydromorphone HCl [Dilaudid] 0 mg PO DAILY 02/12/23 [History] Levothyroxine Sodium 50 Mcg [Synthroid 50 Mcg] 50 mcg PO DAILY 08/19/23 [History] Hx Tetanus, Diphtheria Vaccination/Date Given: Yes Hx Influenza Vaccination/Date Given: No Hx Pneumococcal Vaccination/Date Given: No Travel Risk - International Travel Have you traveled outside of the country in past 3 weeks: No - Coronavirus Screening Are you exhibiting any of the following symptoms?: Yes Symptoms: Cough: New Onset (Mild, nonproductive) - Vaccine Status Have you recieved a Covid-19 vaccination: Yes Home Health Aide Caregiver: Moderna - Vaccination Dates Date of 2cond Vaccination (if applicable): 01/04/21 - Review of Systems Constitutional: No Symptoms Eyes: No Symptoms Ears, Nose, & Throat: No Symptoms Respiratory: Cough Cardiac: No Symptoms Abdominal/Gastrointestinal: No Symptoms Genitourinary Symptoms: No Symptoms Musculoskeletal: Arthralgias, Myalgias Skin: No Symptoms Neurological: No Symptoms Psychological: No Symptoms Endocrine: No Symptoms Hematologic/Lymphatic: No Symptoms Immunological/Allergic: No Symptoms All Other Systems: Reviewed and Negative - Past Medical History Pertinent Past Medical History: Yes Neurological History: Other ENT History: Other Cardiac History: Arrhythmia, High Cholesterol, Hypertension Respiratory History: Other Endocrine Medical History: Hypothyroidism, Other Musculoskeletal History: Osteoarthritis, Other GI Medical History: GERD, Gallbladder Disease History: Other Psycho-Social History: No Pertinent History Female Reproductive Disorders: Cervical Cancer Other Medical History: PATIENT HAD LYMPHOMA - IN REMISSION WITH REGULAR BLOOD WORK. ALSO HX OF CERVICAL CANCER WITH OOPHORECTOMY AND HYSTERECTOMY. 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 HX OF 3 SURGERIES ON LEFT ANKLE FOR TENDON ISSUES. HAD INJECTION LEFT HIP IN NOVEMBER FOR BURSITIS. multiple scorolsis. 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 - Past Surgical History Past Surgical History: Yes Neuro Surgical History: Other Cardiac: Cardiac Catheterization Respiratory: No Pertinent History Gastrointestinal: Appendectomy, Cholecystectomy Genitourinary: Kidney Surgery Musculoskeletal: Orthopedic Surgery, Other Female Surgical History: Hysterectomy, Other Other Surgical History: odilia oopherectomy, t-11 and t12 laminectiomy, stents in kidney, PAIN PUMP - Social History Smoking Status: Former smoker How long have you smoked: 5 years Exposure to second hand smoke: No Drug Use: none Patient Lives Alone: No - Nursing Vital Signs Nursing Vital Signs: Initial Vital Signs Temperature 97.2 F 08/19/23 20:49 Pulse Rate 94 H 08/19/23 20:49 Respiratory Rate 18 08/19/23 20:49 Blood Pressure 180/85 08/19/23 20:49 O2 Sat by Pulse Oximetry 97 08/19/23 20:49 Pain Scale Pain Intensity [Generalized] 7 Pain Intensity 7 - Physical Exam General Appearance: no apparent distress, alert, anxiety Eye Exam: PERRL/EOMI, eyes nml inspection Ears, Nose, Throat Exam: normal ENT inspection, moist mucous membranes Neck Exam: normal inspection, non-tender, supple, full range of motion Respiratory Exam: normal breath sounds, lungs clear, airway intact, No chest tenderness, No respiratory distress Cardiovascular Exam: regular rate/rhythm, normal heart sounds, normal peripheral pulses Gastrointestinal/Abdomen Exam: soft, normal bowel sounds, No tenderness Pelvic Exam: not done Rectal Exam: not done Back Exam: normal inspection, normal range of motion, No CVA tenderness Extremity Exam: normal inspection, normal range of motion, pelvis stable Neurologic Exam: alert, oriented x 3, cooperative, field laboratory operator II-XII nml as tested, normal mood/affect, sensation nml, No nml cerebellar function, No nml station & gait Skin Exam: normal color, warm, dry Lymphatic Exam: No adenopathy SpO2 Interpretation: normal O2 Delivery: Room Air - Course Nursing assessment & vital signs reviewed: Yes Ordered Tests: Medication Summary Discontinued Medications Generic Name Dose Route Start Last Admin Trade Name Rafal PRN Reason Stop Dose Admin Methylprednisolone Sodium 0 mg 08/19/23 22:05 08/19/23 22:23 Succinate 125 mg/ Sterile IM 08/19/23 22:06 125 mg Water 2 ml STAT ONE Administration Methylprednisolone Sodium Succinate Confirm 08/19/23 22:19 Methylprednis Sod Succ 125 Mg/2 Ml Vial Administered 08/19/23 22:20 Dose 125 mg .ROUTE .STK-MED ONE Sterile Water Confirm 08/19/23 22:19 Water For Injection,Sterile 10 Ml Vial Administered 08/19/23 22:20 Dose 10 ml IJ .STK-MED ONE Lab/Rad Data: Laboratory Results 08/19/23 Range/Units 22:14 Influenza Type A Ag NEGATIVE (NEGATIVE) Influenza Type B Ag NEGATIVE (NEGATIVE) RSV (PCR) POSITIVE (NEGATIVE) SARS-CoV-2 (PCR) NEGATIVE (NEGATIVE) - Progress Progress: improved, pain not gone completely, re-examined Progress Note: 08/19/23 22:28 This patient's medical issue is 1 of low complexity. The level complex in the work-up performed is based on review of the patient's past medical history, review the patient's medication list, review the patient drug allergy list, history of present illness and physical findings on examination. The work-up the patient and I agreed upon includes a COVID test and injection of Solu-Medrol steroid. This treatment helped her MS flareup last time. We will also send a prescription of prednisone and doxycycline to her pharmacy which will continue helping both any upper respiratory infections last bronchitis and her MS flareup symptoms. Counseled pt/family regarding: lab results, diagnosis, need for follow-up Medical Desision Making - Diagnostic Testing Diagnostic test were ordered, analyzed, and reviewed by me: Yes - Risk of complications The pt has a mod risk of morbidity or mortality based on: Need for prescription drug management - Departure Departure Disposition: Home Clinical Impression: Multiple sclerosis exacerbation, Bronchitis, RSV bronchitis Condition: Stable Critical Care Time: No Referrals: RASHAD SANON DO [Primary Care Provider] - Follow up/PCP as directed Additional Instructions: Drink plenty of fluids. Take your medication as prescribed. Call your primary care provider tomorrow, 08/20/2023, to make arrangements for follow-up appointment in the next 3 to 5 days. Prescriptions: Prednisone 10 mg [Deltasone 10 mg] 10 mg PO TID #12 tablet Doxycycline Hyclate 100 mg [Vibramycin 100 MG] 100 mg PO BID #14 tab
[2023-08-19 20:50] VITALS: RESP 18; TEMP 97.2
[2023-08-19] MEDS ORDERED: solu-MEDROL ONE (22:19)
[2023-08-19] MEDS ORDERED: Sterile H2O 10 ml IJ ONE (22:19)
[2023-08-19] MEDS: solu-MEDROL 125 MG, Sterile H2O 10 ml 2 ML IM ONE ×2 (22:23)
[2023-08-19 22:53] LABS: INFLUENZA A NEGATIVE (NEGATIVE); INFLUENZA B NEGATIVE (NEGATIVE); SARS-CoV-2 Xpert Express NEGATIVE (NEGATIVE)
[2023-08-19 23:01] LABS: RESPIRATORY SYNCTIAL VIRUS POSITIVE (NEGATIVE)
[2023-08-19 23:17] VITALS: BP 167/73; PULSE 92; O2SAT 96
== END 2023-08-19 23:17 | disposition home or self-care (01) ==
LOC: ED 20:28
DX: G35 Multiple sclerosis (principal); J20.5 Acute bronchitis due to respiratory syncytial virus; R52 Pain, unspecified; I10 Essential (primary) hypertension; E78.5 Hyperlipidemia, unspecified; Z79.52 Long term (current) use of systemic steroids; Z79.01 Long term (current) use of anticoagulants; Z79.891 Long term (current) use of opiate analgesic; Z79.899 Other long term (current) drug therapy
CPT/HCPCS: 0241U; 96372; 99283; J2930

== ENCOUNTER 2023-09-12 10:24 | Day surgery (SDC) | payer MEDICARE ==
[2013-06-22 13:06] VITALS: BP 119/52
[2023-09-12] MEDS ORDERED: Sodium Chloride 0.9(Preservative Free) 10 ML IJ ONE (10:25)
[2023-09-12] MEDS ORDERED: Depo-Medrol 40 MG/ML IM ONE (10:25)
[2023-09-12] MEDS ORDERED: XYLOCAINE-MPF 1% 5ML SDV IJ ONE (10:25)
[2023-09-12] MEDS ORDERED: DIPRIVAN 200 MG/20 ML IV ONE (11:54)
--- NOTE | 2023-09-12 13:36 | XRAY ---
Indication: Lumbar MELLISA. Intraoperative fluoroscopy provided for 13 seconds. 2 digital spot images submitted for interpretation demonstrates posterior needle tip projecting posterior to lumbosacral junction. Small amount of contrast injected for needle tip basement. Correlate with intraoperative findings/report.
--- NOTE | 2023-09-12 14:30 | XRAY ---
13 seconds of fluoroscopy was used in surgery for a lumbar MELLISA.
[2023-09-12] MEDS ORDERED: Lactated Ringers 1,000 ML IV ONE (16:24)
== END 2023-09-12 12:24 | disposition home or self-care (01) ==
LOC: SDC-PAIN 10:24
PROVIDERS: ATTEND Psychiatry & Neurology Pain Medicine
DX: M54.16 Radiculopathy, lumbar region (principal); Z79.899 Other long term (current) drug therapy
CPT/HCPCS: 62323; 72100; 77003; J1030; J2704; Q9966

== ENCOUNTER 2023-09-16 15:33 | Emergency (ER) | payer MEDICARE ==
--- NOTE | 2023-09-16 17:15 | XRAY ---
Indication: Ocular migraine headache. Previous reported history of multiple sclerosis. Multiple contiguous axial images obtained through the head without contrast. Comparison: January 30, 2021. Ventriculosulcal pattern appears symmetric. There are again multiple bilateral ill-defined periventricular patchy hypodensities grossly unchanged presumed known multiple sclerosis. No acute intracranial hemorrhage, abnormal extra-axial fluid collection, or mass effect. Fourth ventricle is midline without hydrocephalus. Bony calvarium intact. Visualized paranasal sinuses and mastoid air cells are clear. Impression: Grossly stable multiple bilateral periventricular hypodensities presumed known multiple sclerosis. No new/acute intracranial abnormalities.
[2023-09-16] MEDS ORDERED: Compazine 10 MG/2 ML IM ONE (17:49)
[2023-09-16] MEDS ORDERED: BENADRYL 50 MG/ML IM ONE (17:49)
--- NOTE | 2023-09-16 17:55 | ERPHSYRPT ---
- History of Present Illness Source: patient Exam Limitations: no limitations Patient Subjective Stated Complaint: SINUS PRESSURE AND VISUAL DISTURBANCE Triage Nursing Assessment: PATIENT REPORTS TO ER WITH C/O VISUAL DISTURBANCE AND SINUS PRESSURE. PATIENT REPORTS THAT SHE HAS MS AND OCCASIONALLY HAS OCCULAR MIGRAINES R/T TO HER MS. PATIENT SEES DR. STEWART AND JUAN LUIS ESTRELLA FOR NEUROLOGY IN [facility] FOR HER MS. PATIENT REPORTS THAT SHE HAS HAD 3 EPISODES OF THESE "MIGRAINES" TODAY AND THAT SHE HAS NEVER HAD MORE THAN 1 EPISODE PER DAY AND IT HAS BEEN MONTHS SINCE HER LAST EPISODE. PATIENT REPORTS THAT AROUND 0800 SHE EXPERIENCED ONE OF THESE "MIGRAINES" WHICH CAUSED BLURRED "FUZZY" VISION FOR 30 MINUTES, AROUND 1320 PATIENT REPORTS SHE EXPERIENCED HER SECOND "MIGRAINE" WHICH RESOLVED ON ITS OWN AFTER 30 MINUTES, AND A THIRD EPISODE AROUND 1500 WHICH AGAIN RESOLVED AFTER 30 MINUTES. PATIENTS DENIES HAVING A HEADACHE DURING THESE "MIGRAINES" AND STATES SHE ONLY EXPERIENCE THE VISUAL DISTURBANCES. PATIENT DENIES HEADACHE AND VISUAL DISTURBANCE AT THIS TIME BUT IS REPORT CONSTANT PRESSURE ACROSS HER EYES. PATIENT DENIES DIZZINESS, NAUSEA AND VOMITING. Physician History: Patient is a 68-year-old female with MS who presents with frontal head pressure since 1500 today. Patient has a history of frontal headaches which are caused by her MS, but she states that she typically has 1 a day and its at 3 today. Headaches were preceded by scotoma and blurry vision, but she denies nausea, vomiting, and focal weakness. Head trauma and fever also denied. The pain does get worse with light exposure. Patient states that the pain is fairly typical of her headaches but that the increased frequency is what really what worries her today. Timing/Duration: other (1500 today) Quality: pressure (Frontal pressure) Head Pain Location: frontal (Frontal) Severity of Pain-Max: moderate Severity of Pain-Current: mild Recent Head Trauma: no recent headache/trauma Modifying Factors: Improves With: exposure to light (Exposure light makes it worse) Associated Symptoms: denies symptoms, sensitive to light, vision changes Previous symptoms: same symptoms as today (Same symptoms that this day but just more frequent today) Allergies/Adverse Reactions: levofloxacin [From Levaquin] Allergy (Mild, Verified 09/16/23 15:54) tendonitis Penicillins Allergy (Unknown, Verified 09/16/23 15:54) Rash chromium Allergy (Verified 09/16/23 15:54) Rash formaldehyde Allergy (Verified 09/16/23 15:54) Rash epinephrine Adverse Reaction (Unknown, Verified 09/16/23 15:54) pt states it increases her heart rate and makes her feel stoned morphine Adverse Reaction (Unknown, Verified 09/16/23 15:54) hallucnations NSAIDS (Non-Steroidal Anti-Inflamma Adverse Reaction (Unknown, Verified 09/16/23 15:54) stomach ulcers nalbuphine HCl [From Nubain] Adverse Reaction (Verified 09/16/23 15:54) hallucunations steroids Adverse Reaction (Unknown, Uncoded 09/16/23 15:54) pt states they makes her flush feel hot and increases her blood pressure with po steriods along with stomach cramps ....its more of a sensitivity. Home Medications: Baclofen 10 mg [Lioresal 10 mg] 20 mg PO QID 04/08/12 [History] estradioL [Estradiol] 0.5 mg PO DAILY 04/08/12 [History] PANTOPRAZOLE 40 mg Tablet [Protonix 40MG Tablet] 40 mg PO DAILY 01/24/16 [History] Atorvastatin Calcium [Lipitor 20MG Tablet] 20 mg PO 1800 01/20/21 [History] Promethazine HCl 25 mg [Phenergan 25 mg] 25 mg PO Q6H PRN PRN 01/20/21 [History] Rivaroxaban 10 mg Tablet [Xarelto 10 mg Tablet] 20 mg PO DAILY 01/20/21 [History] Diazepam 5 mg [Valium 5 MG] 5 mg PO DAILY PRN PRN 01/30/21 [History] Cyclosporine [Restasis Multidose] 1 drop OP BID 02/12/23 [History] Ferrous Sulfate [Iron] 325 mg PO DAILY 02/12/23 [History] Hydromorphone HCl [Dilaudid] 0 mg PO DAILY 02/12/23 [History] Levothyroxine Sodium 50 Mcg [Synthroid 50 Mcg] 50 mcg PO DAILY 08/19/23 [History] Diltiazem HCl [Cardizem Cd] 120 mg PO DAILY 09/16/23 [History] Hx Tetanus, Diphtheria Vaccination/Date Given: Yes Hx Influenza Vaccination/Date Given: No Hx Pneumococcal Vaccination/Date Given: No Travel Risk - International Travel Have you traveled outside of the country in past 3 weeks: No - Coronavirus Screening Are you exhibiting any of the following symptoms?: No Close contact with a COVID-19 positive Pt in past 14-21 Days: No - Vaccine Status Have you recieved a Covid-19 vaccination: Yes Pile Driving Supervisor: Unknown - Vaccination Dates Dates if Unknown: UNKNOWN - Review of Systems Constitutional: No Symptoms Eyes: No Symptoms Ears, Nose, & Throat: No Symptoms Respiratory: No Symptoms Cardiac: No Symptoms Abdominal/Gastrointestinal: No Symptoms Genitourinary Symptoms: No Symptoms Musculoskeletal: No Symptoms Skin: No Symptoms Neurological: Headache Psychological: No Symptoms Endocrine: No Symptoms Hematologic/Lymphatic: No Symptoms Immunological/Allergic: No Symptoms - Past Medical History Pertinent Past Medical History: Yes Neurological History: Other ENT History: Other Cardiac History: Arrhythmia, High Cholesterol, Hypertension Respiratory History: Other Endocrine Medical History: Hypothyroidism, Other Musculoskeletal History: Osteoarthritis, Other GI Medical History: GERD, Gallbladder Disease History: Other Psycho-Social History: No Pertinent History Female Reproductive Disorders: Cervical Cancer Other Medical History: MS. PATIENT HAD LYMPHOMA - IN REMISSION WITH REGULAR BLOOD WORK. ALSO HX OF CERVICAL CANCER WITH OOPHORECTOMY AND HYSTERECTOMY. 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 HX OF 3 SURGERIES ON LEFT ANKLE FOR TENDON ISSUES. HAD INJECTION LEFT HIP IN NOVEMBER FOR BURSITIS. multiple scorolsis. 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 - Past Surgical History Past Surgical History: Yes Neuro Surgical History: Other Cardiac: Cardiac Catheterization Respiratory: No Pertinent History Gastrointestinal: Appendectomy, Cholecystectomy Genitourinary: Kidney Surgery Musculoskeletal: Orthopedic Surgery, Other Female Surgical History: Hysterectomy, Other Other Surgical History: odilia oopherectomy, t-11 and t12 laminectiomy, stents in kidney, PAIN PUMP - Social History Smoking Status: Former smoker How long have you smoked: 5 years Exposure to second hand smoke: No Drug Use: none Patient Lives Alone: No (WITH ) - Nursing Vital Signs Nursing Vital Signs: Initial Vital Signs Pulse Rate 106 H 09/16/23 17:56 Respiratory Rate 14 09/16/23 17:56 O2 Sat by Pulse Oximetry 99 09/16/23 17:56 Pain Scale Pain Intensity 6 Vital signs noted in nursing chart. - Physical Exam General Appearance: no apparent distress Eye Exam: PERRL/EOMI, eyes nml inspection Ears, Nose, Throat Exam: normal ENT inspection, TMs normal, pharynx normal, moist mucous membranes Neck Exam: normal inspection, non-tender, supple, full range of motion, No meningismus, No mass, No Brudzinski, No Kernig's, No carotid bruit, No JVD Respiratory Exam: normal breath sounds, lungs clear, airway intact, No respiratory distress Cardiovascular Exam: regular rate/rhythm, normal heart sounds, normal peripheral pulses, capillary refill <2 sec, No murmur Gastrointestinal/Abdominal Exam: soft, normal bowel sounds Back Exam: normal inspection, normal range of motion Extremity Exam: normal inspection, normal range of motion Mental Status Exam: alert, oriented x 3, 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 Quiroz) Ordered Tests: Active Orders 24 hr Category Date Time Status HEAD WITHOUT CONTRAST [CT] Stat Exams 09/16/23 16:18 Completed Medication Summary Discontinued Medications Generic Name Dose Route Start Last Admin Trade Name Rafal PRN Reason Stop Dose Admin Diphenhydramine HCl 25 mg 09/16/23 17:49 09/16/23 18:08 Diphenhydramine Hcl 50 Mg/Ml Vial IM 09/16/23 17:50 Not Given STAT ONE Diphenhydramine HCl Confirm 09/16/23 18:01 Diphenhydramine Hcl 50 Mg/Ml Vial Administered 09/16/23 18:02 Dose 50 mg .ROUTE .STK-MED ONE Diphenhydramine HCl 25 mg 09/16/23 18:08 09/16/23 18:13 Diphenhydramine Hcl 25 Mg Capsule PO 09/16/23 18:09 25 mg STAT ONE Administration Diphenhydramine HCl Confirm 09/16/23 18:11 Diphenhydramine Hcl 25 Mg Capsule Administered 09/16/23 18:12 Dose 25 mg .ROUTE .STK-MED ONE Prochlorperazine 5 mg 09/16/23 18:08 09/16/23 18:18 Prochlorperazine Maleate 5 Mg Tablet PO 09/16/23 18:09 5 mg ONCE ONE Administration Prochlorperazine Edisylate 10 mg 09/16/23 17:49 09/16/23 18:08 Prochlorperazine Edisylate 10 Mg/2 Ml Vial IM 09/16/23 17:50 Not Given STAT ONE Prochlorperazine Edisylate Confirm 09/16/23 18:01 Prochlorperazine Edisylate 10 Mg/2 Ml Vial Administered 09/16/23 18:02 Dose 10 mg .ROUTE .STK-MED ONE - Progress Progress Note: 09/16/23 17:56 Nursing note vital signs reviewed. No food or housing insecurity noted. CAT scan result reviewed and shared with patient. Patient refused 10 mg IM Compazine and 25 mg IM Benadryl because she did not want take an IM injection, so 5 mg p.o. Compazine and 25 mg p.o. Benadryl given. It appears that patient's headache is her typical frontal headache that she has with her MS. She has no new focal weakness and no acute changes on her CT scan. Patient discharged from ER in stable condition and advised to follow-up with her neurologist. Also advised to return to ER if her symptoms worsen. 09/16/23 19:08 Serial neuro exams negative wet in the ER, and appears that patient's headache is of her chronic nature. She is discharged in stable condition. Counseled pt/family regarding: diagnosis, need for follow-up, rad results Medical Desision Making - Independent Historian Additional History obtained from: Child - Diagnostic Testing Radiological Interpretation: Reviewed by me, Discussed w/ radiologist - Risk of complications Low Risk: Low risk of morbidity from additional dx testing or treatment - Departure Departure Disposition: Home Clinical Impression: Migraine headache with aura Condition: Stable Critical Care Time: No Referrals: RASHAD SANON DO [Primary Care Provider] - Follow up/PCP as directed Instructions: Headache, Adult (DC) Additional Instructions: Follow-up with your neurologist in 1 to 2 days. Return to ER for any focal weakness, increasing pain, or temperature greater 100.5.
[2023-09-16 17:57] VITALS: PULSE 106; RESP 14; O2SAT 99
[2023-09-16] MEDS ORDERED: BENADRYL 50 MG/ML ONE (18:01)
[2023-09-16] MEDS ORDERED: Compazine 10 MG/2 ML ONE (18:01)
[2023-09-16] MEDS ORDERED: BENADRYL 25 MG CAPSULE PO ONE (18:08)
[2023-09-16] MEDS ORDERED: Compazine 5 MG PO ONE (18:08)
[2023-09-16] MEDS ORDERED: BENADRYL 25 MG CAPSULE ONE (18:11)
== END 2023-09-16 18:26 | disposition home or self-care (01) ==
LOC: ED 15:33
DX: G43.109 Migraine with aura, not intractable, without status migrainosus (principal); G35 Multiple sclerosis; E78.5 Hyperlipidemia, unspecified; I10 Essential (primary) hypertension; Z79.891 Long term (current) use of opiate analgesic; Z79.899 Other long term (current) drug therapy
CPT/HCPCS: 70450; 99283; J1200; A9270-GY

== ENCOUNTER 2024-03-18 10:54 | Day surgery (SDC) | payer MEDICARE ==
[2013-06-22 13:06] VITALS: BP 119/52
[2024-03-18] MEDS ORDERED: Depo-Medrol 40 MG/ML IM ONE (10:55)
[2024-03-18] MEDS ORDERED: Sodium Chloride 0.9(Preservative Free) 10 ML IJ ONE (10:55)
[2024-03-18] MEDS ORDERED: XYLOCAINE-MPF 1% 5ML SDV IJ ONE (10:55)
[2024-03-18] MEDS ORDERED: DIPRIVAN 200 MG/20 ML IV ONE (13:09)
--- NOTE | 2024-03-18 14:53 | XRAY ---
Indication: Caudal MELLISA. Intraoperative fluoroscopy provided for 11 seconds. 2 digital spot image submitted for interpretation demonstrates caudal needle tip projecting mid sacrum. Small amount of contrast injected for needle tip placement. Correlate with intraoperative findings/report.
[2024-03-18] MEDS ORDERED: Lactated Ringers 1,000 ML IV ONE (14:56)
--- NOTE | 2024-03-18 15:19 | XRAY ---
11 seconds of fluoroscopy was used in surgery for a caudal MELLISA.
== END 2024-03-18 13:42 | disposition home or self-care (01) ==
LOC: SDC-PAIN 10:54
PROVIDERS: ATTEND Psychiatry & Neurology Pain Medicine
DX: M54.16 Radiculopathy, lumbar region (principal)
CPT/HCPCS: 62323; 72220; 77003; J1010; J2704; Q9966

== ENCOUNTER 2024-06-17 13:05 | Day surgery (SDC) | payer MEDICARE ==
[2013-06-22 13:06] VITALS: BP 119/52
[2024-06-17] MEDS ORDERED: Depo-Medrol 40 MG/ML IM ONE (13:06)
[2024-06-17] MEDS ORDERED: BUPIVACAINE 0.5% VIAL IJ ONE (13:06)
[2024-06-17] MEDS ORDERED: DIPRIVAN 200 MG/20 ML IV ONE (15:03)
[2024-06-17] MEDS ORDERED: Lactated Ringers 1,000 ML IV ONE (15:32)
--- NOTE | 2024-06-17 20:08 | XRAY ---
Indication: Bilateral SI joint injection Intraoperative fluoroscopy provided for 23 seconds. 2 digital spot image submitted for interpretation demonstrates posterior needle tips projecting over the expected left and right SI joints. Small amount of contrast injected for needle tip placement. Correlate with intraoperative findings/report.
--- NOTE | 2024-06-17 20:23 | XRAY ---
23 seconds of fluoroscopy was used in surgery for a bilateral sacroiliac joint injection.
== END 2024-06-17 15:40 | disposition home or self-care (01) ==
LOC: SDC-PAIN 13:05
PROVIDERS: ATTEND Psychiatry & Neurology Pain Medicine
DX: M46.1 Sacroiliitis, not elsewhere classified (principal)
CPT/HCPCS: 27096; 72202; 77002; G0260; J2704; Q9966

== ENCOUNTER 2025-01-06 07:01 | Day surgery (SDC) | payer MEDICARE ==
[2025-01-06] MEDS ORDERED: TYLENOL EXTRA STRENGTH 500 MG ONE (07:17)
[2025-01-06] MEDS ORDERED: Lactated Ringers 1,000 ML IV ONE (07:18)
[2025-01-06] MEDS ORDERED: Pepcid 20 MG ONE (07:18)
[2025-01-06] MEDS ORDERED: Decadron 4 MG ONE (07:18)
[2025-01-06] MEDS ORDERED: NEURONTIN ONE (07:24)
[2025-01-06] MEDS: Decadron 4 MG PO ONE (07:29)
[2025-01-06] MEDS: Lactated Ringers 1,000 ML IV SCH (07:29)
[2025-01-06] MEDS: NEURONTIN PO ONE (07:29)
[2025-01-06] MEDS: Pepcid 20 MG PO ONE (07:30)
[2025-01-06] MEDS: TYLENOL EXTRA STRENGTH 500 MG PO ONE (07:30)
[2025-01-06] MEDS ORDERED: SUBLIMAZE 100 MCG/2 ML ONE ×2 (09:54→10:29)
[2025-01-06] MEDS ORDERED: propofoL IV ONE (09:54)
[2025-01-06] MEDS ORDERED: Zofran 4 MG/2 ML VIAL ONE (10:42)
[2025-01-06] MEDS ORDERED: DILAUDID 0.5 MG/0.5 ML SYRINGE ONE (11:04)
[2025-01-06] MEDS ORDERED: TRANDATE 20 MG/4 ML SYRINGE IV ONE (11:34)
--- NOTE | 2025-01-06 11:44 | XRAY ---
Indication: Follow-up surgery. Impression: Fibroid 2023 AP left shoulder obtained in internal/external rotation again demonstrates osteopenia, mild glenohumeral/minimal acromioclavicular degenerative changes, minimal multilevel degenerative spondylosis, minimal dextroscoliosis, and left perihilar calcified granulomas. New minimal left lung base subsegmental atelectasis/scarring. No acute abnormalities.
[2025-01-06 13:00] VITALS: O2SAT 95
[2025-01-06 13:17] VITALS: BP 159/76; PULSE 84; RESP 18; TEMP 97.5
--- NOTE | 2025-01-07 11:48 | OP ---
SURGERY DATE/TIME: 01/06/2025 [id number] PREOPERATIVE DIAGNOSIS: Adhesive capsulitis, left shoulder. POSTOPERATIVE DIAGNOSIS: Adhesive capsulitis, left shoulder. PROCEDURE: Manipulation of the left shoulder under anesthesia. SURGEON: Rui Briscoe II, DO ANESTHESIA: General. DESCRIPTION OF PROCEDURE AND FINDINGS: The patient was identified and informed consent was obtained. The patient was taken to the operative suite where light general anesthetic was administered. Once an appropriate level of anesthesia had been obtained, the hydraulic pile hammer operator then manipulated the shoulder by first moving in forward flexion with a very short fulcrum. Adhesions were felt to pop when the shoulder was forward flexed. Following the manipulation, 180 degrees of forward flexion was available. Second, the shoulder was then manipulated in extension such that about 60 degrees of extension could be obtained easily. Internal and external rotation were then approached next such that 90 degrees of internal and external rotation were easily noted and with simple mild passive range of motion. Following this, the patient was transferred to the recovery room in satisfactory condition where x-ray showed no fractures and the shoulder was noted to be well within the glenoid.
== END 2025-01-06 13:00 | disposition home or self-care (01) ==
LOC: SDC 07:01
PROVIDERS: ATTEND Orthopaedic Surgery
DX: M75.02 Adhesive capsulitis of left shoulder (principal)
CPT/HCPCS: 73030; J1171; J2405; J2704; J3010; A9270-GY